=== PATIENT | male | born 1955 | race Caucasian/White ===

== ENCOUNTER → 2017-03-01 | Outpatient (CLI) | payer MEDICARE, BC ==
--- NOTE | 2017-03-01 08:53 | CT ---
EXAMINATION TYPE: CT cervical spine wo con DATE OF EXAM: 03/01/2017 COMPARISON: NONE HISTORY: Cervicalgia CT DLP: 555.60 mGycm Automated exposure control for dose reduction was used. TECHNIQUE: CT scan of the cervical spine is obtained without contrast, axial images are obtained, sa gittal and coronal reformatted images are also reviewed. FINDINGS: There is narrowing of disc height C3-4 through C6-7. Mild spondylosis is present. No AP spi nal canal stenosis is present. Uncovertebral joint hypertrophy is contributing to foraminal narrowing C6-7, C6-5-6 on the right, mildly at C4-5 greater on the right C3-4. IMPRESSION: 1. Degenerative disc changes and uncovertebral joint hypertrophy contributing to foraminal narrowing discussed above
== END | disposition home or self-care (01) ==
LOC: RADCTMAIN 08:22
PROVIDERS: ATTEND Psychiatry & Neurology Neurology
DX: M99.71 Connective tissue and disc stenosis of intervertebral foramina of cervical region (principal); M47.812 Spondylosis without myelopathy or radiculopathy, cervical region
CPT/HCPCS: 72125

== ENCOUNTER 2017-03-15 09:10 | Day surgery (SDC) | payer MEDICARE, BC ==
[2017-03-12 11:54] VITALS: BMI 30.1
[~2017-03-15 09:10] MED LIST: DEXAMETHASONE SOD PHOSPHATE 10 MG/ML 1 ML VIAL IV ONE; HYDROmorphone 1 MG/ML 1 ML SYRINGE IVP PRN; LACTATED RINGERS 1,000 ML IV SCH; ONDANSETRON 4 MG/2 ML VIAL IVP ONE
[2017-03-15 09:40] VITALS: RESP 16; TEMP 98
[2017-03-15] MEDS ORDERED: PROPOFOL 10 MG/ML 20 ML VIAL IV ONE (10:50)
--- NOTE | 2017-03-15 11:20 | P.PCN ---
Date of Procedure: 03/15/17 Preoperative Diagnosis: Postoperative Diagnosis: Procedure(s) Performed: Procedure: Total colonoscopy. Preoperative diagnosis: Screening for neoplasia. Postoperative diagnosis: Exam within normal limits. Preparation: HalfLytely prep. Sedation: Was provided by anesthesia. Brief clinical history: The patient is a 62-year-old male who is referred for this evaluation for screening for neoplasia. He had a prior exam more than 10 years ago. At this time, he has no abdominal complaints, bleeding or anemia. Procedure: With the patient on his left lateral decubitus position and after informed consent and adequate sedation, the perianal area was inspected and it did not show any fissures or fistulas. There were no masses felt on digital rectal examination. The Olympus CFQ 160L video colonoscope was then inserted in the rectum in the usual fashion and advanced to the cecum. The mucosa appeared healthy. No polyps or tumors were seen or any obvious diverticular disease or other pathology. I retroflexed the endoscope in the rectum before the endoscope was withdrawn. The patient tolerated the procedure well. Plan: The patient was reassured. He will follow up with you as planned and I recommended a repeat exam in 10 years. Implants: Indications for Procedure: Operative Findings: Description of Procedure:
[2017-03-15 11:35] VITALS: BP 139/87; PULSE 86
== END 2017-03-15 11:58 | disposition home or self-care (01) ==
LOC: ORWHC2ENDO 09:10
DX: Z12.11 Encounter for screening for malignant neoplasm of colon (principal); E78.5 Hyperlipidemia, unspecified; I10 Essential (primary) hypertension; G47.33 Obstructive sleep apnea (adult) (pediatric); Z99.89 Dependence on other enabling machines and devices; Z79.1 Long term (current) use of non-steroidal anti-inflammatories (NSAID); Z79.891 Long term (current) use of opiate analgesic; Z79.899 Other long term (current) drug therapy
CPT/HCPCS: J2704; G0121

== ENCOUNTER → 2017-04-17 | Outpatient (CLI) | payer MEDICARE, BC ==
--- NOTE | 2017-04-18 08:17 | PN ---
Yimi is 62, he came to see me in followup. This is his annual checkup regarding obstructive sleep apnea. He has obstructive sleep apnea with an AHI of 28. Chronically on CPAP with a pressure of 10 cm of water. Treatment has remained successful over the past 1 year. He is still benefiting from the treatment. He is wearing it every night. He wakes up refreshed and alert during the day and sleep quality is good. He is averaging around 7.8 hours of CPAP use every night. No significant leaks around the mask and AHI ( ) down to 1.2. He is using an Air Fit P10 nasal pillow, small size. Weight is up by only 8 to 9 pounds. BP is 113/66, pulse 100, respirations 16, temperature 98.1, saturation 96% on room air. Height is 5,10, weight is 211. GENERAL APPEARANCE: Calm, comfortable. HEENT: Short neck, crowding of the posterior pharynx, no goiter, no neck masses. LUNGS: Clear to auscultation. Heart sounds are regular rate and rhythm, normal S1, S2. ABDOMEN: Soft, nontender, no organomegaly. EXTREMITIES: No edema, cyanosis or clubbing. IMPRESSION: 1. Obstructive sleep apnea, with an apnea-hypopnea index of 28, continues to have successful therapy with CPAP at a pressure of 10 cm of water. Treatment has been successful and the patient is very compliant. PLAN: 1. Encourage weight loss. 2. New CPAP supplies. 3. No need for adjustment on the CPAP machine. 4. Will continue to follow. See me back in a year or two in followup. BELINDA
== END ==
LOC: SLEEP 13:50
PROVIDERS: ATTEND Internal Medicine Critical Care Medicine
DX: G47.33 Obstructive sleep apnea (adult) (pediatric) (principal)

== ENCOUNTER → 2017-12-20 | Outpatient (CLI) | payer MEDICARE ==
--- NOTE | 2017-12-20 12:28 | CT ---
EXAMINATION TYPE: CT lumbar spine wo con DATE OF EXAM: 12/20/2017 COMPARISON: 03/22/2016 MRI HISTORY: 62-year-old male complains of low back pain with radiation to the left leg. TECHNIQUE: Contiguous axial scanning of the lumbar spine without IV contrast. Coronal and sagittal re constructions performed. CT DLP: 996.9 mGycm Automated exposure control for dose reduction was used. FINDINGS: Vertebral body heights are preserved and alignment is maintained. Spinal stimulator leads entering at the L3-L4 and T12-L1 levels. There is right-sided L5-S1 posterior fusion as well as mature bony interbody fusion. Mild disc bulging at L3-L4 and L4-L5. Facet degenerative change at both L4-L5 and L5-S1. On the left, there is mild neuroforaminal narrowing at L4-L5 and minimal at L3-L4. On the right, ther e is mild neuroforaminal narrowing at L3-L4, L4-L5, and possibly moderate at L5-S1. No tony canal compromise evident by CT. Diverticular change along the distal sigmoid. Gastric fundal diverticulum incidentally noted. Degenerative changes at the left SI joint. IMPRESSION: 1. RIGHT-SIDED POSTERIOR FUSION at L5-S1 as well as mature interbody bony fusion. Corresponding taina ectomy. 2. Mild bulging disks mid to lower lumbar spine without tony canal compromise by CT. Corresponding m ild facet arthropathy. 3. On the right, there is mild neuroforaminal narrowing from L3 through S1 levels. 4. On the left, there is mild neural foraminal stenosis at L4-L5. 5. Left SI joint OA.
== END | disposition home or self-care (01) ==
LOC: RADCTMAIN 11:04
PROVIDERS: ATTEND Psychiatry & Neurology Neurology
DX: M99.73 Connective tissue and disc stenosis of intervertebral foramina of lumbar region (principal); M51.26 Other intervertebral disc displacement, lumbar region; M47.898 Other spondylosis, sacral and sacrococcygeal region; Z98.1 Arthrodesis status
CPT/HCPCS: 72131

== ENCOUNTER → 2018-05-23 | Outpatient (CLI) | payer MEDICARE ==
--- NOTE | 2018-05-23 11:14 | SFUN ---
SLEEP CENTER FOLLOW UP NOTE DATE OF SERVICE: A 63-year-old gentleman who has been followed in the Sleep Center for treatment of obstructive sleep apnea-hypopnea syndrome. Patient is on treatment with CPAP for 3 years. He continued to use his equipment every night for the whole night without any significant problems receiving his supplies in time. [place] Sleepiness Scale today is 5. I checked his CPAP unit. CPAP pressure is 10 cm of water. Leak is only 7 L/minute which is normal range. Apnea-hypopnea index is 5, which is acceptable. The usage is 121/30 nights for more than 4 hours. Average usage is 9.3 hours, which is normal compliance. MEDICATIONS: Morphine pump, Zocor, lisinopril, Lyrica, Motrin, Norvasc, and oxycodone. PHYSICAL EXAM: A 63-year-old gentleman without distress. BP 111/66, HR 68, RR 16, height 5, 9, weight 206, temperature 98.3, oxygen saturation at room air 96%. OROPHARYNX: Moderately low position of soft palate. Neck Supple, no JVD. Thyroid is not palpable. LUNGS Clear to percussion and to auscultation. Good air exchange. No wheezing or rhonchi. HEART S1, S2 regular. No murmurs, gallops, or rubs. ABDOMEN Soft and nontender. Bowel sounds are present. No organomegaly appreciated. EXTREMITIES No clubbing or cyanosis. FERRY TERMINAL AGENT Awake, alert, and oriented X3. Cranial nerves 2 to 7 intact. There is no fasciculation or atrophy. noted. No focal deficits observed. IMPRESSION: 1. Obstructive sleep apnea-hypopnea syndrome on control with CPAP. Patient demonstrated good compliance with treatment, benefitting from treatment. 2. Hypertension. 3. Hyperlipidemia. 4. Blood problems. PLAN: 1. Patient will continue to use CPAP equipment every night for the whole night. 2. Watching weight. 3. We discussed using of humidity to be sure that there is not any water in the humidifier after usage in the morning, let it dry. 4. No driving if feeling any sleepiness. 5. Will maintain prescription for all necessary CPAP supplies, including nasal pillow mask, tube, filters. Sincerely, Braulio Damian MD, PhD, FAASM Diplomat of [place] [employer] [place] [employer] Disease Intervention Specialist of [facility] [place] MMODL / ILIR: [id number] /
== END | disposition home or self-care (01) ==
LOC: SLEEP 09:55
PROVIDERS: ATTEND Internal Medicine
DX: G47.33 Obstructive sleep apnea (adult) (pediatric) (principal); D75.9 Disease of blood and blood-forming organs, unspecified; E78.5 Hyperlipidemia, unspecified; I10 Essential (primary) hypertension; Z99.89 Dependence on other enabling machines and devices; Z79.891 Long term (current) use of opiate analgesic; Z79.1 Long term (current) use of non-steroidal anti-inflammatories (NSAID); Z79.899 Other long term (current) drug therapy

== ENCOUNTER → 2018-07-19 | Outpatient (CLI) | payer MEDICARE ==
--- NOTE | 2018-07-19 10:23 | ECHOS ---
STRESS ECHOCARDIOGRAM INDICATIONS: Chest pain. MEDICATIONS: Lisinopril, amlodipine, atorvastatin, oxycodone, morphine pump. BASELINE HEART RATE: 82 BASELINE BLOOD PRESSURE: 104/42 MAXIMUM HEART RATE: 152 MAXIMUM BLOOD PRESSURE: 168/58 85% MPHR: 135 100% MPHR: 159 METS: 8.5 MAXIMUM STAGE REACHED: 3 TOTAL EXERCISE TIME: 7:00 CLINICAL INFORMATION: Baseline EKG shows sinus rhythm, normal axis, normal intervals. Patient exercised on Abdirahman protocol for a total of 7 minutes achieving 8 METS, 95% of predicted maximal heart rate without chest pain or diagnostic ST-segment depression. Baseline echo shows normal left ventricular size, wall motion, systolic function. Postexercise, there is normal hyperdynamic response of all segments of myocardium noted. MMODL / IJN: [id number] /
== END | disposition home or self-care (01) ==
LOC: RADNMMAIN 08:40
PROVIDERS: ATTEND Family Medicine
DX: R07.9 Chest pain, unspecified (principal)
CPT/HCPCS: 93351

== ENCOUNTER → 2019-06-05 | Outpatient (CLI) | payer MEDICARE ==
--- NOTE | 2019-06-05 18:00 | PN ---
PROGRESS NOTE DATE OF SERVICE: 06/05/2019 64-year-old gentleman who has been followed in the Sleep Center for treatment of obstructive sleep apnea-hypopnea syndrome. The patient continued to use his CPAP equipment every night for the whole night without significant problems related to mask fitting, pressure or humidification. [place] Sleepiness Scale today is 4. I checked patient's CPAP unit. CPAP pressure is 10 cm of water. Usage is 27/30 nights for last month and 21/30 nights for more than 4 hours with average usage of 6.1 hours per night. Leak is 11 L/minute, which is normal range. Apnea-hypopnea index only 1.0, which is absolutely perfect. MEDICATIONS: Zocor, lisinopril, Lyrica, Motrin, Norvasc, oxycodone, morphine pump. PHYSICAL EXAM: Patient in no distress. BP 120/79, HR 84, RR 16, height 5 feet 9 inches, weight 213 pounds. Body mass index 31.4, temperature 98.6, oxygen saturation at room air 97%. Oropharynx, low position of soft palate, Mallampati 3. Neck Supple, no JVD. Thyroid is not palpable. LUNGS Clear to percussion and to auscultation. Good air exchange. No wheezing or rhonchi. HEART: S1, S2 regular. No murmurs, gallops, or rubs. ABDOMEN: Slightly obese. Soft and nontender. Bowel sounds are present. No organomegaly appreciated. EXTREMITIES No clubbing or cyanosis. MANAGER RAIL Awake, alert, and oriented X3. Cranial nerves 2 to 7 intact. There is no fasciculation or atrophy. noted. No focal deficits observed. IMPRESSION: 1. Obstructive sleep apnea-hypopnea syndrome. Patient demonstrated good compliance with treatment benefitting from treatment. 2. Hypertension. 3. Hyperlipidemia. 4. Back problems. PLAN: 1. Patient will continue to use CPAP equipment every night for the whole night. 2. Sleep hygiene with regular time in bed for at least 7-1/2 to 8 hours. 3. No driving if feeling sleepiness. 4. I will maintain all necessary prescriptions for CPAP supplies including nasal pillow, mask. He is using AirFit P10 small-medium size, heated tube filters. 5. Followup visit in 1 year or earlier if patient has any problems. Thank you very much for allowing me to participate in management of your patient. Sincerely, Braulio Damian MD, PhD, FAASM Diplomat of [employer] Entomology Teacher of [facility] [place] MMGEETHA / ILIR: [id number] /
== END ==
LOC: SLEEP 15:19
PROVIDERS: ATTEND Internal Medicine
DX: G47.33 Obstructive sleep apnea (adult) (pediatric) (principal); I10 Essential (primary) hypertension; E78.5 Hyperlipidemia, unspecified; R29.898 Other symptoms and signs involving the musculoskeletal system; Z99.89 Dependence on other enabling machines and devices; Z79.899 Other long term (current) drug therapy; Z79.1 Long term (current) use of non-steroidal anti-inflammatories (NSAID); Z79.891 Long term (current) use of opiate analgesic

== ENCOUNTER → 2019-08-25 | Outpatient (CLI) | payer MEDICARE ==
--- NOTE | 2019-08-25 10:42 | CT ---
EXAMINATION TYPE: CT lumbar spine wo/w con DATE OF EXAM: 08/25/2019 COMPARISON: 12/20/2017 HISTORY: Worsening low back pain with radiation to the extremities. CT DLP: 2406 mGycm CONTRAST: Unenhanced CT of the lumbar spine is performed without and with IV Contrast, patient injected with 10 0 mL of Isovue 300. L1-L2: Normal disc space height. No disc herniation protrusion or central stenosis. No facet joint arthropathy. No evidence for foraminal encroachment. L2-L3: Normal disc space height. No disc herniation protrusion or central stenosis. No facet joint arthropathy. No evidence for foraminal encroachment. L3-L4: Mild degenerative disc space narrowing. Mild posterior disc bulge with mild effacement ventral thecal sac. No herniation, central stenosis or lateral recess stenosis. No foraminal encroachment. L4-L5: Lumbar laminectomy change. Mild posterior disc bulge. No evidence for a disc herniation or ryne tral stenosis. No pathologic enhancement identified. L5-S1: Postsurgical changes of lumbar laminectomy with pedicular screws in place. Extensive streak ar tifact limits evaluation. Intervertebral body spacer is appropriately position. No definite evidence for recurrent or residual disease although as noted streak artifact limits evaluation. No paraspinal masses are identified. Lumbar segments are free if fracture. IMPRESSION: 1. Postoperative changes with appropriate postoperative alignment. 2. Disc bulging at L3-4 and L4-5 with mild effacement ventral thecal sac. No evidence for disc hernia tion or central stenosis at this time.
== END ==
LOC: RADCTMAIN 08:57
PROVIDERS: ATTEND Psychiatry & Neurology Neurology
DX: M51.26 Other intervertebral disc displacement, lumbar region (principal); Z98.890 Other specified postprocedural states
CPT/HCPCS: 72133; Q9967

== ENCOUNTER → 2020-08-18 | Outpatient (CLI) | payer MEDICARE | END | disposition home or self-care (01) | LOC: LABWHC1 10:44 | PROVIDERS: ATTEND Psychiatry & Neurology Neurology | DX: Z01.818 Encounter for other preprocedural examination (principal) | CPT/HCPCS: 36415; 93005 ==

== ENCOUNTER → 2020-09-08 | Outpatient (CLI) | payer MEDICARE ==
--- NOTE | 2020-09-09 00:25 | SFUN ---
SLEEP CENTER FOLLOW UP NOTE DATE OF SERVICE: 09/08/2020. DATE OF SERVICE: 65-year-old gentleman who has been followed in Sleep Center for treatment of obstructive sleep apnea-hypopnea syndrome. The patient successfully continues to use his CPAP equipment every night for the whole night without snoring. No problems related to mask fitting, pressure or humidification. [place] Sleepiness Scale today he is 6, which is normal. I checked the CPAP unit. CPAP pressure is 10 cm of water. Usage is 28/30 nights more than 4 hours with average usage is 7 hours per night. Leak is 8 L/minutes which is normal. Apnea-hypopnea index is 2.3, which is perfect. MEDICATIONS: Morphine pump, amlodipine 5 mg once a day, hydrochlorothiazide, lisinopril once a day, atorvastatin 40 mg once a day at bedtime. Cyclobenzaprine 10 mg on p.r.n. basis, ibuprofen 800 mg twice a day, oxycodone HCl 5 mg twice a day if needed. 100 mg once a day, multivitamins. PHYSICAL EXAM: Patient in no distress, BP 115/65, HR 68, RR 15, height 5 feet 9-1/2 inches, weight 228, BMI 33.1, temperature 98.3, oxygen saturation at room air 96%. Oropharynx low position of soft palate. Mallampati 3. HEENT: PERRLA, EOMI, evaluation of oropharynx showed tongue protrudes midline. NECK: Supple, no JVD. Thyroid is not palpable. LUNGS: Clear to percussion and to auscultation. Good air exchange. No wheezing or rhonchi. HEART: S1, S2 regular. No murmurs, gallops, or rubs. ABDOMEN: Soft and nontender. Bowel sounds are present. No organomegaly appreciated. EXTREMITIES: No clubbing or cyanosis. CAN RECONDITIONER: Awake, alert, and oriented X3. Cranial nerves 2 to 7 intact. There is no fasciculation or atrophy. noted. No focal deficits observed. IMPRESSION: 1. Obstructive sleep apnea-hypopnea syndrome. The patient demonstrated great compliance with treatment benefitting from treatment. 2. Hypertension. 3. Hyperlipidemia. 4. Back problem. PLAN: 1. Patient will continue to use PAP equipment every night for the whole night. 2. Sleep hygiene with regular time in bed for at least 7-1/2 to 8 hours. 3. Precautions related to driving. No driving if feeling sleepiness. 4. I will maintain all necessary prescription for PAP supplies including mask, tube, filters. 5. Watching weight. 6. No driving if feeling sleepiness. 7. Follow-up visit in 6 months or earlier if patient has any problems. Thank you very much for allowing me to participate in management of your patient. Sincerely, Braulio Damian MD, PhD, FAASM Diplomat of [place] [employer] [employer] Pricing Consultant of [facility] [place] MMODL / JARETTN: [id number] /
== END | disposition home or self-care (01) ==
LOC: SLEEP 13:30
PROVIDERS: ATTEND Internal Medicine
DX: G47.33 Obstructive sleep apnea (adult) (pediatric) (principal); I10 Essential (primary) hypertension; E78.5 Hyperlipidemia, unspecified; R93.89 Abnormal findings on diagnostic imaging of other specified body structures; Z99.89 Dependence on other enabling machines and devices; Z79.891 Long term (current) use of opiate analgesic; Z79.1 Long term (current) use of non-steroidal anti-inflammatories (NSAID); Z79.899 Other long term (current) drug therapy

== ENCOUNTER → 2021-01-19 | Outpatient (CLI) | payer MEDICARE ==
--- NOTE | 2021-01-19 11:24 | CT ---
EXAMINATION TYPE: CT lumbar spine w con DATE OF EXAM: 01/19/2021 COMPARISON: 08/25/2019 HISTORY: low back pain radiating bilaterally down legs to the feet, history of lumbar fusion CT DLP: 1367.2 mGycm CONTRAST: CT scan of the lumbar is performed with IV Contrast, patient injected with 100 mL of Isovue 300. TECHNIQUE: CT of the lumbar spine is performed on a spiral scan at 3 mm thick sections. Reconstructed images are performed in the coronal and sagittal planes. FINDINGS: Metallic artifact from a pedicle screws present on the right at L5-S1. Metallic disc spacer s present at L5-S1. Stimulator leads are present. T12-L1: No focal disc herniation or significant disc bulge is evident. No spinal canal stenosis or neural foraminal stenosis is present. L1-L2: Minimal disc bulge is present with anterior thecal sac contact. No AP spinal canal stenosis pr esent. Neural foramen are patent. L2-L3: Mild disc bulge is present with anterior thecal sac contact. No spinal canal stenosis or neura l foraminal stenosis is present. L3-L4: Mild disc bulges anterior thecal sac flattening. Facet hypertrophy with minimal ligamentum fla vum laxity is present. No spinal canal stenosis is present. Neural foramen appear patent. L4-L5: Broad-based disc bulge with mild anterior thecal sac compression. No AP spinal canal stenosis is present. Neural foramen are patent. Facet hypertrophy is present. Vacuum facet phenomenon is on th e right. L5-S1: No focal disc herniation or significant disc bulge is evident. No spinal canal stenosis or n eural foraminal stenosis is present Vertebral alignment appears normal. IMPRESSION: Mild disc bulging at L1-2 through L4-5. This is greatest at L4-5 with mild anterior thecal sac compre ssion. No stenosis is present. 2. Facet degenerative change L4-5 on the right.
== END | disposition home or self-care (01) ==
LOC: RADCTMAIN 09:39
PROVIDERS: ATTEND Psychiatry & Neurology Neurology
DX: M51.16 Intervertebral disc disorders with radiculopathy, lumbar region (principal); M47.26 Other spondylosis with radiculopathy, lumbar region
CPT/HCPCS: 72132; Q9967

== ENCOUNTER → 2021-03-17 | Outpatient (CLI) | payer MEDICARE ==
--- NOTE | 2021-03-17 15:32 | SFUN ---
SLEEP CENTER FOLLOW UP NOTE DATE OF SERVICE: 03/17/2021 66 year old gentleman has been followed in the Sleep Center for treatment of obstructive sleep apnea-hypopnea syndrome. The patient successfully continued to use his equipment every night. No snoring. [place] Sleepiness Scale today is 8 which is in normal range. The patient continues to be on pain pump with morphine. I checked his CPAP unit. The pressure is 10 cm of water. Usage is 30/30 nights and 21 out of 30 nights for more than 4 hours. Average 5.6 hours per night. Leak is 14 L/minute which is borderline, but apnea-hypopnea index is totally perfect 2.2. MEDICATIONS: Amlodipine 5 mg once a day. Hydrochlorothiazide, lisinopril 20/25 mg once a day, trazodone 50 mg 1-2 tablets at bedtime, atorvastatin 80 mg once a day, omeprazole 40 mg once a day, morphine pump, Lyrica 100 mg once a day, multivitamins, pregabalin, oxycodone, cyclobenzaprine 10 mg once a day. PHYSICAL EXAMINATION: GENERAL: Patient in no distress. BP 134/85, HR 74, RR 15, height 5 feet 9 and one half inches, weight 220. Body mass index 32. Temperature 98.4, oxygen saturation 97%. Oropharynx: Low position of soft palate, Mallampati 3. NECK: Supple, no JVD. Thyroid is not palpable. LUNGS: Clear to percussion and to auscultation. Good air exchange. No wheezing or rhonchi. HEART: S1, S2 regular. No murmurs, gallops, or rubs. ABDOMEN: Soft and nontender. Bowel sounds are present. No organomegaly appreciated. EXTREMITIES: No clubbing or cyanosis. MANAGER BALANCE: Awake, alert, and oriented X3. Cranial nerves 2 to 7 intact. There is no fasciculation or atrophy. noted. No focal deficits observed. IMPRESSION: 1. Obstructive sleep apnea-hypopnea syndrome. Patient demonstrated good compliance with treatment. Normal aspiration on CPAP. 2. Hypertension. 3. Hyperlipidemia. 4. Back problems. PLAN: 1. Patient will continue to use PAP equipment every night for the whole night. 2. Sleep hygiene with regular time in bed for at least 7-1/2 to 8 hours. 3. Precautions related to driving. No driving if feeling sleepiness. 4. I will maintain all necessary prescription for PAP supplies including mask, tube, filters. 5. Watching weight. 6. Follow-up visit in 6 months or earlier if patient has any problems. Thank you very much for allowing me to participate in management of your patient. Sincerely, Braulio Damian MD, PhD, FAASM Diplomat of [place] [employer] Sleep Medicine Board of [place] [employer] Retail Planning Manager of [facility] [place] MMODL / ILIR: [id number] /
== END ==
LOC: SLEEP 11:18
PROVIDERS: ATTEND Internal Medicine
DX: G47.33 Obstructive sleep apnea (adult) (pediatric) (principal); I10 Essential (primary) hypertension; E78.5 Hyperlipidemia, unspecified; M48.9 Spondylopathy, unspecified; F17.200 Nicotine dependence, unspecified, uncomplicated; Z79.899 Other long term (current) drug therapy

== ENCOUNTER → 2022-08-18 | Outpatient (CLI) | payer MEDICARE ==
[2022-08-18 11:36] LABS: African American GFR (CKD) >90 (>60 ml/min/1.73 sqM); Blood Urea Nitrogen 15 mg/dL (9-20); Non-African American GFR(CKD) >90 (>60 ml/min/1.73 sqM)
--- NOTE | 2022-08-18 14:29 | CT ---
EXAMINATION TYPE: CT lumbar spine wo/w con CT DLP: 2045 mGycm, Automated exposure control for dose reduction was used. DATE OF EXAM: 08/18/2022 1:38 PM COMPARISON: CT lumbar spine 01/19/2021. CLINICAL INDICATION:Male, 67 years old with history of M54.50 low back pain; PHH, Low back pain TECHNIQUE: Multiple axial images were obtained from the midportion of T11 through the sacroiliac zaina nts before and after the uneventful administration of 70 cc of Isovue-300 intravenously. Soft tissue and bone windows in coronal and sagittal planes were obtained and reviewed. FINDINGS: Metallic artifact from pedicular screws present on the right at L5-S1. Metallic disc spacers present at L5-S1. Stimulator leads are present. No abnormal contrast enhancement. Alignment: There are 5 lumbar type vertebral bodies within normal alignment. Bone: No evidence of fracture is identified. Discs: T12-L1: No focal disc herniation or significant disc bulge is evident. No spinal canal stenosis or ne ural foraminal stenosis identified. L1-L2: Minimal disc bulge is present with out significant central canal stenosis. The neural foramina are patent bilaterally. L2-L3: Minimal broad-based disc bulge without significant spinal canal stenosis. The neural foramina are patent bilaterally. L3-L4: Broad-based disc bulge with minimal effacement of the intrathecal sac. No significant spinal c anal stenosis. The neural foramina are patent bilaterally. L4-L5: Broad-based disc bulge with mild effacement of the anterior thecal sac are demonstrated. Face t hypertrophy with minimal ligamentum flavum buckling is present. No significant central canal stenos is. The neural foramina appear patent bilaterally. L5-S1: No focal disc herniation or significant disc bulge is evident. Evaluation is limited due to st reak artifact from hardware. No gross evidence of significant spinal canal or neural foraminal stenos is. Other: Partial visualization of left renal cyst measuring at least 1.7 cm. Mild atrophy and calcifica tion of the aorta. IMPRESSION: 1. No evidence of fracture of the lumbar spine. 2. Stable postoperative changes. 3. Similar multilevel degenerative disc disease most pronounced at L4-L5 from prior examination.
== END | disposition home or self-care (01) ==
LOC: RADCTMAIN 11:03
PROVIDERS: ATTEND Psychiatry & Neurology Neurology
DX: M51.36 Other intervertebral disc degeneration, lumbar region (principal); Z98.1 Arthrodesis status
CPT/HCPCS: 82565; 84520; 72133; 36415; Q9967

== ENCOUNTER → 2022-10-11 | Outpatient (CLI) | payer MEDICARE | END | disposition home or self-care (01) | LOC: LABWHC1 11:47 | PROVIDERS: ATTEND Nurse Practitioner Family | DX: Z01.818 Encounter for other preprocedural examination (principal) | CPT/HCPCS: 93005 ==

== ENCOUNTER → 2022-12-25 | Outpatient (CLI) | payer MEDICARE ==
--- NOTE | 2022-12-25 14:53 | US ---
EXAMINATION TYPE: US thyroid st tissue head/neck DATE OF EXAM: 12/25/2022 COMPARISON: NONE CLINICAL INDICATION: Male, 67 years old with history of E04.1 NONTOXIC SINGLE THYROID NODULE; thyroid nodules GLAND SIZE: Right Lobe: 6.0 x 2.0 x 2.6 cm Overall Parenchyma: homogenous Left Lobe: 5.6 x 2.1 x 2.0 cm Overall Parenchyma: homogeneous Isthmus Thickness: 0.6 cm NODULES RIGHT: # of nodules measured on right: 1 1. 0.7 X 0.6 x 0.8 cm, lower , mixed cystic and solid, hypoechoic nodule, which is wider than tall, with smooth margins, with echogenic foci. Prior size: 1.3 x 0.9 x 1.1 cm LEFT: # of nodules measured on left: 0 ISTHMUS: # of nodules measured in the isthmus: 0 Bilateral neck scanned, no evidence of lymphadenopathy. IMPRESSION: Mixed nodule is redemonstrated however is smaller in size.
== END | disposition home or self-care (01) ==
LOC: RADUSWWP 12:16
DX: E04.1 Nontoxic single thyroid nodule (principal)
CPT/HCPCS: 76536

== ENCOUNTER 2023-06-20 09:01 | Day surgery (SDC) | payer MEDICARE ==
[2023-06-13 13:57] VITALS: BMI 31.5
[~2023-06-20 09:01] MED LIST changes: -DEXAMETHASONE SOD PHOSPHATE 10 MG/ML 1 ML VIAL IV ONE; -HYDROmorphone 1 MG/ML 1 ML SYRINGE IVP PRN; -LACTATED RINGERS 1,000 ML IV SCH; +LIDOCAINE 1% (10MG/ML) FOR IV START INTRADERMA PRN; -ONDANSETRON 4 MG/2 ML VIAL IVP ONE
[2023-06-20] MEDS: LACTATED RINGERS 1,000 ML IV SCH ×2 (09:27→10:12)
[2023-06-20 09:34] VITALS: TEMP 97
[2023-06-20] MEDS ORDERED: LIDOCAINE 2% (PF) 20 MG/ML 5 ML VIAL ONE (10:13)
[2023-06-20] MEDS ORDERED: PROPOFOL 10 MG/ML 20 ML VIAL IV ONE (10:13)
--- NOTE | 2023-06-20 10:35 | P.GSHP ---
History of Present Illness H&P Date: 06/20/23 CHIEF COMPLAINT: GERD HISTORY OF PRESENT ILLNESS: The patient is a 68-year-old male who presents reports gastric ulcers and gastroesophageal reflux disease. Upper endoscopy was offered for further evaluation and management. PAST MEDICAL HISTORY: Please see list. PAST SURGICAL HISTORY: Please see list. MEDICATIONS: Please see list. ALLERGIES: Please see list. SOCIAL HISTORY: No illicit drug use FAMILY HISTORY: No reports of Crohn disease or ulcerative colitis. REVIEW OF ORGAN SYSTEMS: CONSTITUTIONAL: No reports of fevers or chills. GI: Denies any blood in stools or constipation. PHYSICAL EXAM: VITAL SIGNS: Stable GENERAL: Well-developed and pleasant in no acute distress. HEENT: No scleral icterus. Extraocular movements grossly intact. Moist buccal mucosa. NECK: Supple without lymphadenopathy. CHEST: Unlabored respirations. Equal bilateral excursions. CARDIOVASCULAR: Regular rate and rhythm. Distal 2+ pulses. ABDOMEN: Soft, nondistended. MUSCULOSKELETAL: No clubbing, cyanosis, or edema. ASSESSMENT: 1. Gastroesophageal reflux disease 2. Gastric ulcers PLAN: 1. Recommend proceeding with an upper endoscopy Past Medical History Past Medical History: Hyperlipidemia, Hypertension, Sleep Apnea/CPAP/BIPAP Additional Past Medical History / Comment(s): CPAP MACHINE, TINNITUS, colonoscopy History of Any Multi-Drug Resistant Organisms: None Reported Past Surgical History: Back Surgery, Orthopedic Surgery, Tonsillectomy Additional Past Surgical History / Comment(s): RIGHT AND LEFT SHOULDER SURGERY, STIMULATOR IMPLANTED IN BACK, L5 S1 locked SI joints , morphine pump, gets filled every 62 days 07/23/23, has stomach ulcer has been off motrin x 2 weeks. Has abdominal hernia no surgery yet Past Anesthesia/Blood Transfusion Reactions: No Reported Reaction Additional Past Anesthesia/Blood Transfusion Reaction / Comment(s): no blood transfusion Smoking Status: Current every day smoker - Past Family History Mother Family Medical History: No Reported History Medications and Allergies Home Medications Medication Instructions Recorded Confirmed Type Amitriptyline HCl 50 mg PO HS 03/12/17 06/20/23 History Lisinopril-Hctz 20-25 mg 1 tab PO DAILY 03/12/17 06/20/23 History [Zestoretic 20-25] Pregabalin [Lyrica] 200 mg PO BID 03/12/17 06/20/23 History Simvastatin [Zocor] 40 mg PO HS 03/12/17 06/20/23 History amLODIPine [Norvasc] 5 mg PO HS 03/12/17 06/20/23 History oxyCODONE HCL [OxyCONTIN] 20 mg PO Q12HR 03/12/17 06/20/23 History Multivitamin [Multivitamins Adult 1 each PO DAILY 06/13/23 06/20/23 History Gummies] Naloxegol Oxalate [Movantik] 12.5 mg PO DAILY 06/13/23 06/20/23 History Omeprazole 40 mg PO DAILY 06/13/23 06/20/23 History Sucralfate [Carafate] 1 gm PO TID 06/13/23 06/20/23 History traZODone HCL [Desyrel] 2 tab PO HS 06/13/23 06/20/23 History Allergies Allergy/AdvReac Type Severity Reaction Status Date / Time No Known Allergies Allergy Verified 06/20/23 09:20 Surgical - Exam Vital Signs Temp Pulse Resp BP Pulse Ox 97 F L 66 18 154/77 94 L 06/20/23 09:25 06/20/23 09:25 06/20/23 09:25 06/20/23 09:25 06/20/23 09:25
--- NOTE | 2023-06-20 10:39 | P.PCN ---
Date of Procedure: 06/20/23 Description of Procedure: PREOPERATIVE DIAGNOSIS: Gastroesophageal reflux disease. Gastric ulcers POSTOPERATIVE DIAGNOSIS: Gastric diverticulum, cardia Gastritis Gastroesophageal reflux disease. Esophageal dysmotility OPERATION: Esophagogastroduodenoscopy with biopsies esophagus, along antrum and duodenum SURGEON: Kasey Alvarez MD ANESTHESIA: MAC. INDICATIONS: The patient is a 68-year-old male who presents with gastric ulcers and reflux disease. Benefits and risks of the procedure were described. Informed consent was obtained. DESCRIPTION: The patient was brought into the endoscopy suite and laid in the left lateral decubitus position. An Olympus gastroscope was passed along the posterior oropharynx down to the distal esophagus where the squamocolumnar junction was encountered at 38 cm from the incisors. The stomach was entered and no bile reflux was found. Additional findings are listed below. Biopsies with cold forceps were obtained of the antrum. The first through third portion of the duodenum was examined. Retroflexion of the scope confirmed Hill grade 2 lower esophageal valve. The squamocolumnar junction demonstrated LA grade A erosive esophagitis. The stomach was desufflated. The patient tolerated the procedure well. FINDINGS: Squamocolumnar junction 38 cm from the incisors. Diaphragmatic hiatus at 38 cm. Gastric diverticulum at gastric cardia Diaphragmatic hiatal hernia, paraesophageal Hill grade 2 lower esophageal valve. LA grade A erosive esophagitis. Biopsies obtained of the duodenum And esophagus Chronic gastritis with biopsies obtained. RECOMMENDATIONS: Upper endoscopy as needed. Plan - Discharge Summary Discharge Rx Participant: No New Discharge Prescriptions: Continue Amitriptyline HCl 50 mg PO HS Simvastatin [Zocor] 40 mg PO HS Lisinopril-Hctz 20-25 mg [Zestoretic 20-25] 1 tab PO DAILY oxyCODONE HCL [OxyCONTIN] 20 mg PO Q12HR Pregabalin [Lyrica] 200 mg PO BID amLODIPine [Norvasc] 5 mg PO HS Omeprazole 40 mg PO DAILY Naloxegol Oxalate [Movantik] 12.5 mg PO DAILY traZODone HCL [Desyrel] 2 tab PO HS Multivitamin [Multivitamins Adult Gummies] 1 each PO DAILY Sucralfate [Carafate] 1 gm PO TID Discharge Medication List Amitriptyline HCl 50 mg PO HS 03/12/17 [History] Lisinopril-Hctz 20-25 mg [Zestoretic 20-25] 1 tab PO DAILY 03/12/17 [History] Pregabalin [Lyrica] 200 mg PO BID 03/12/17 [History] Simvastatin [Zocor] 40 mg PO HS 03/12/17 [History] amLODIPine [Norvasc] 5 mg PO HS 03/12/17 [History] oxyCODONE HCL [OxyCONTIN] 20 mg PO Q12HR 03/12/17 [History] Multivitamin [Multivitamins Adult Gummies] 1 each PO DAILY 06/13/23 [History] Naloxegol Oxalate [Movantik] 12.5 mg PO DAILY 06/13/23 [History] Omeprazole 40 mg PO DAILY 06/13/23 [History] Sucralfate [Carafate] 1 gm PO TID 06/13/23 [History] traZODone HCL [Desyrel] 2 tab PO HS 06/13/23 [History] Follow up Appointment(s)/Referral(s): Kasey Alvarez MD [STAFF PHYSICIAN] - 07/10/23 11:00 am Patient Instructions/Handouts: Moderate Sedation (DC) Discharge Disposition: HOME SELF-CARE
[2023-06-20 11:00] VITALS: BP 146/80; PULSE 64; RESP 20
== END 2023-06-20 11:06 | disposition home or self-care (01) ==
LOC: ORWHC2ENDO 09:01
PROVIDERS: ATTEND Surgery Plastic and Reconstructive Surgery
DX: K29.50 Unspecified chronic gastritis without bleeding (principal); K31.4 Gastric diverticulum; K22.4 Dyskinesia of esophagus; K25.9 Gastric ulcer, unspecified as acute or chronic, without hemorrhage or perforation; K21.9 Gastro-esophageal reflux disease without esophagitis; E78.5 Hyperlipidemia, unspecified; G47.30 Sleep apnea, unspecified; I10 Essential (primary) hypertension; F17.200 Nicotine dependence, unspecified, uncomplicated; Z79.899 Other long term (current) drug therapy
CPT/HCPCS: 88305; 43239; J2704; J2001

== ENCOUNTER → 2023-07-30 | Outpatient (CLI) | payer MEDICARE ==
[2023-07-30 14:52] LABS: African American GFR (CKD) >90 (>60 ml/min/1.73 sqM); Blood Urea Nitrogen 13 mg/dL (9-20); Non-African American GFR(CKD) >90 (>60 ml/min/1.73 sqM)
--- NOTE | 2023-07-31 08:19 | CT ---
EXAMINATION TYPE: CT abdomen pelvis w con DATE OF EXAM: 07/30/2023 COMPARISON: None HISTORY: HX OF STOMACH ULCERS AND UMBILICAL HERNIAS. CT DLP: 1746.70 mGycm CONTRAST: CT scan of the abdomen and pelvis is performed with Oral Contrast and with IV Contrast, patient injec latrell with 100 mL of Isovue 300. FINDINGS: LUNG BASES-: No visible nodule. No infiltrate. LIVER/GB: No calcified gallstones. No space occupying hepatic lesion. Biliary tree is of normal ca liber. PANCREAS: No inflammation. No distinct mass. SPLEEN: No splenic enlargement. No lesion seen. ADRENALS: No nodule. No thickening. KIDNEYS/BLADDER: No hydronephrosis. No nephrolithiasis. 2 simple cyst left kidney measuring up to 1 .8 cm. Urinary bladder grossly unremarkable. BOWEL: Normal appendix. Normal bowel caliber. No inflammation. Gastric diverticulum noted. GENITAL ORGANS: No gross abnormality. LYMPH NODES: No greater than 1cm abdominal or pelvic lymph nodes are appreciated. AORTA: No significant abnormality. OSSEOUS STRUCTURES: Postoperative changes lumbar spine. OTHER: Small fat-containing umbilical hernia. IMPRESSION: 1. Gastric diverticulum noted. 2. Small fat-containing umbilical hernia. 3. Simple cyst left kidney.
== END | disposition home or self-care (01) ==
LOC: RADCTMAIN 13:21
PROVIDERS: ATTEND Surgery Plastic and Reconstructive Surgery
DX: K43.9 Ventral hernia without obstruction or gangrene (principal); K42.9 Umbilical hernia without obstruction or gangrene; K31.4 Gastric diverticulum; N28.1 Cyst of kidney, acquired; Z87.11 Personal history of peptic ulcer disease
CPT/HCPCS: 82565; 84520; 74177; 36415; Q9967

== ENCOUNTER → 2023-10-22 | Outpatient (CLI) | payer MEDICARE ==
[2023-10-22 14:16] LABS: African American GFR (CKD) >90 (>60 ml/min/1.73 sqM); Blood Urea Nitrogen 13 mg/dL (9-20); Non-African American GFR(CKD) 85 (>60 ml/min/1.73 sqM)
--- NOTE | 2023-10-25 20:09 | CT ---
EXAMINATION TYPE: CT pelvis wo/w con DATE OF EXAM: 10/22/2023 COMPARISON: 07/30/2023 HISTORY: LOW BACK PAIN. CT DLP: 1307.9 mGycm Automated exposure control for dose reduction was used. Contrast: None Technique: Axial images 5 mm thick sections FINDINGS: There is an electronic device overlying the anterior left posterior and lateral left abdomen. Postsur gical changes are within the L5-S1 levels. These are causing beam hardening artifact limiting evaluat ion. Urinary bladder appears unremarkable. Prostate appears normal with some calcification. Loops of bowel appear unremarkable. The appendix is not identified. No suspicious inflammatory change s are evident. Postsurgical changes at the left sacroiliac joint and within the right L5-S1 pedicles. Disc spacers p resent L5-S1. Femoral heads articulate with the acetabulum. Symphysis pubis appears normal. Right sacroiliac joint appears normal. IMPRESSION: 1. NO SUSPICIOUS ACUTE CHANGES
--- NOTE | 2023-10-26 07:32 | CT ---
EXAMINATION TYPE: CT lumbar spine wo/w con DATE OF EXAM: 10/22/2023 COMPARISON: 08/18/2022 HISTORY: LOW BACK PAIN. CT DLP: 3379 mGycm CONTRAST: None TECHNIQUE: CT of the lumbar spine is performed on a spiral scan at 3 mm thick sections. Reconstructed images are performed in the coronal and sagittal planes. FINDINGS: Stimulator leads enter the T12-L1 level. An additional stimulator lead appears to enter the L3-4 level. T12-L1: No focal disc herniation or significant disc bulge is evident. No spinal canal stenosis or neural foraminal stenosis is present. L1-L2: No focal disc herniation or significant disc bulge is evident. No spinal canal stenosis or n eural foraminal stenosis is present L2-L3: No focal disc herniation or significant disc bulge is evident. No spinal canal stenosis or n eural foraminal stenosis is present L3-L4: Broad-based disc bulge has mild anterior thecal sac flattening. No AP spinal canal stenosis is present. Moderate left and right foraminal narrowing is present. L4-L5: Broad-based disc bulges anterior thecal sac flattening. No AP spinal canal stenosis is present . Severe left foraminal stenosis is present. Some moderate to severe right foraminal stenosis is pres ent. L5-S1: Disc spacer is present causing beam hardening artifact. Pedicle screws are present L5-S1 on th e right. No spinal canal stenosis is present. Some moderate right foraminal narrowing may be present. Left foramen is patent. Vertebral alignment appears normal. IMPRESSION: 1. Foraminal narrowing at L4-5 and L5-S1 discussed above. This appears most severe left L4-5. 2. Postsurgical changes
== END | disposition home or self-care (01) ==
LOC: RADCTMAIN 13:34
PROVIDERS: ATTEND Psychiatry & Neurology Neurology
DX: Z01.818 Encounter for other preprocedural examination (principal); M99.73 Connective tissue and disc stenosis of intervertebral foramina of lumbar region; M51.36 Other intervertebral disc degeneration, lumbar region; M46.1 Sacroiliitis, not elsewhere classified; Z98.1 Arthrodesis status
CPT/HCPCS: 82565; 84520; 72194; 72133; 36415; Q9967

== ENCOUNTER 2024-01-10 03:25 | Emergency (ER) | payer MEDICARE ==
--- NOTE | 2024-01-10 03:54 | ED ---
Abdominal Pain HPI - General Source: patient Mode of arrival: ambulatory Limitations: no limitations - History of Present Illness MD Complaint: abdominal pain Onset/Timin -: hour(s) Location: LLQ Radiation: none Migration to: no migration Severity: severe Quality: sharp Consistency: colicky Improves With: nothing Worsens With: nothing <Shahzad Lange - Last Filed: 01/10/24 06:45> - General Source: RN notes reviewed, old records reviewed <Yuri Blum - Last Filed: 01/10/24 09:37> - General Chief Complaint: Abdominal Pain Stated Complaint: Abd pain Time Seen by Provider: 01/10/24 03:34 - History of Present Illness Initial Comments: This patient is 68-year-old man who complains of the acute onset of left lower quadrant pain. He describes it as being sharp, severe, and states that it seems to come in waves. He has not discovered worsening or relieving factors. He did noted the onset of the pain to have an episode of urination that had some u rgency and discomfort. (Shahzad Lange) - Related Data Home Medications Medication Instructions Recorded Confirmed Amitriptyline HCl 50 mg PO HS 03/12/17 06/20/23 Lisinopril-Hctz 20-25 mg 1 tab PO DAILY 03/12/17 06/20/23 [Zestoretic 20-25] Pregabalin [Lyrica] 200 mg PO BID 03/12/17 06/20/23 Simvastatin [Zocor] 40 mg PO HS 03/12/17 06/20/23 amLODIPine [Norvasc] 5 mg PO HS 03/12/17 06/20/23 oxyCODONE HCL [OxyCONTIN] 20 mg PO Q12HR 03/12/17 06/20/23 Multivitamin [Multivitamins Adult 1 each PO DAILY 06/13/23 06/20/23 Gummies] Naloxegol Oxalate [Movantik] 12.5 mg PO DAILY 06/13/23 06/20/23 Omeprazole 40 mg PO DAILY 06/13/23 06/20/23 Sucralfate [Carafate] 1 gm PO TID 06/13/23 06/20/23 traZODone HCL [Desyrel] 2 tab PO HS 10/04/23 10/11/23 Allergies Allergy/AdvReac Type Severity Reaction Status Date / Time No Known Allergies Allergy Verified 01/10/24 03:29 Review of Systems ROS Other: All systems not noted in ROS Statement are negative. Constitutional: Denies: fever, chills Respiratory: Denies: cough, dyspnea Cardiovascular: Denies: chest pain, palpitations, edema Gastrointestinal: Reports: abdominal pain. Denies: nausea, vomiting, diarrhea, constipation, melena, hematochezia Genitourinary: Reports: urgency, dysuria. Denies: frequency, hematuria, discharge, testicular pain, testicular mass Musculoskeletal: Denies: back pain Skin: Denies: rash Neurological: Denies: headache, weakness, numbness <Shahzad Lange - Last Filed: 01/10/24 06:45> ROS Other: All systems not noted in ROS Statement are negative. <Yuri Blum - Last Filed: 01/10/24 09:37> ROS Statement: Those systems with pertinent positive or pertinent negative responses have been documented in the HPI. Past Medical History Past Medical History: Hyperlipidemia, Hypertension, Sleep Apnea/CPAP/BIPAP Additional Past Medical History / Comment(s): CPAP MACHINE, TINNITUS, colonoscopy History of Any Multi-Drug Resistant Organisms: None Reported Past Surgical History: Back Surgery, Orthopedic Surgery, Tonsillectomy Additional Past Surgical History / Comment(s): RIGHT AND LEFT SHOULDER SURGERY, STIMULATOR IMPLANTED IN BACK, L5 S1 locked SI joints , morphine pump, gets filled every 62 days 07/23/23, has stomach ulcer has been off motrin x 2 weeks. Has abdominal hernia no surgery yet Past Anesthesia/Blood Transfusion Reactions: No Reported Reaction Additional Past Anesthesia/Blood Transfusion Reaction / Comment(s): no blood transfusion Past Psychological History: No Psychological Hx Reported Smoking Status: Former smoker Past Alcohol Use History: Occasional Past Drug Use History: None Reported - Past Family History Mother Family Medical History: No Reported History <Shahzad Lange - Last Filed: 01/10/24 06:45> General Exam Limitations: no limitations General appearance: alert, in no apparent distress Head exam: Present: atraumatic, normocephalic Eye exam: Present: normal appearance. Absent: scleral icterus, conjunctival injection Neck exam: Present: normal inspection Respiratory exam: Present: normal lung sounds bilaterally. Absent: respiratory distress, wheezes, rales, rhonchi, stridor Cardiovascular Exam: Present: regular rate, normal rhythm, normal heart sounds. Absent: systolic murmur, diastolic murmur, rubs, gallop GI/Abdominal exam: Present: soft. Absent: distended, tenderness, guarding, rebound, rigid, mass Extremities exam: Present: normal inspection, normal capillary refill. Absent: pedal edema, calf tenderness Back exam: Present: normal inspection. Absent: CVA tenderness (R), CVA tenderness (L) Neurological exam: Present: alert Skin exam: Present: warm, dry, intact, normal color. Absent: rash <Shahzad Lange - Last Filed: 01/10/24 06:45> Course Vital Signs 01/10/24 01/10/24 01/10/24 03:27 05:15 06:45 Temperature 97.9 F Pulse Rate 80 84 70 Respiratory 18 18 20 Rate Blood Pressure 184/100 149/83 160/86 O2 Sat by Pulse 96 98 96 Oximetry 01/10/24 07:40 Temperature 97.7 F Pulse Rate 72 Respiratory 20 Rate Blood Pressure 169/96 O2 Sat by Pulse 96 Oximetry Medical Decision Making - Lab Data Result diagrams: 01/10/24 03:56 01/10/24 03:56 <Shahzad Lange - Last Filed: 01/10/24 06:45> - Lab Data Result diagrams: 01/10/24 03:56 01/10/24 03:56 <Yuri Blum - Last Filed: 01/10/24 09:37> - Medical Decision Making Was pt. sent in by a medical professional or institution (, PA, CONCRETE M[employer]ING [employer] SUPERINTENDENT, urgent care, hospital, or fpc...) When possible be specific @ -[No] Did you speak to anyone other than the patient for history (EMS, parent, family, police, friend...)? What history was obtained from this source @ -[No] Did you review nursing and triage notes (agree or disagree)? Why? @ -[I reviewed and agree with nursing and triage notes] Were old charts reviewed (outside hosp., previous admission, EMS record, old EKG, old radiological studies, urgent care reports/EKG's, fpc records)? Report findings @ -[No old charts were reviewed] Differential Diagnosis (chest pain, altered mental status, abdominal pain women, abdominal pain men, vaginal bleeding, weakness, fever, dyspnea, syncope, headache, dizziness, GI bleed, back pain, seizure, CVA, palpatations, mental health, musculoskeletal)? @ -[Differential Abdominal Pain Men: Appendicitis, cholecystitis, diverticulosis, ischemic bowel, pancreatitis, hepatitis, UTI, gastroenteritis, AAA, incarcerated hernia, bowel obstruction, constipation, inflammatory bowel, hepatitis, peptic ulcer disease, splenic infarction, perforated viscus, testicular torsion, this is not meant to be an all-inclusive list EKG interpreted by me (3pts min.). @ -[As above] X-rays interpreted by me (1pt min.). @ -[None done] CT interpreted by me (1pt min.). @ -[None done] U/S interpreted by me (1pt. min.). @ -[None done] What testing was considered but not performed or refused? (CT, X-rays, U/S, labs)? Why? @ -[None] What meds were considered but not given or refused? Why? @ -[None] Did you discuss the management of the patient with other professionals (professionals i.e. , PA, CONCRETE [employer] SUPERINTENDENT, lab, RT, psych nurse, social media job titles, bell captain, teacher, naval gunfire liaison officer, embedded case manager)? Give summary @ -[No] Was smoking cessation discussed for >3mins.? @ -[No] Was critical care preformed (if so, how long)? @ -[No] Were there social determinants of health that impacted care today? How? (Homelessness, low income, unemployed, alcoholism, drug addiction, transportat ion, low edu. Level, literacy, decrease access to med. care, intermediate, rehab)? @ -[No] Was there de-escalation of care discussed even if they declined (Discuss DNR or withdrawal of care, Hospice)? DNR status @ -[No] What co-morbidities impacted this encounter? (DM, HTN, Smoking, COPD, CAD, Cancer, CVA, ARF, Chemo, Hep., AIDS, mental health diagnosis, sleep apnea, morbid obesity)? @ -[None] Was patient admitted / discharged? Hospital course, mention meds given and route, prescriptions, significant lab abnormalities, going to OR and other pertinent info. @ -[hospital course] Undiagnosed new problem with uncertain prognosis? @ -[No] Drug Therapy requiring intensive monitoring for toxicity (Heparin, Nitro, Insulin, Cardizem)? @ -[No] Were any procedures done? @ -[No] Diagnosis/symptom? @ -[default] Acute, or Chronic, or Acute on Chronic? @ -[default] Uncomplicated (without systemic symptoms) or Complicated (systemic symptoms)? @ -[default] Side effects of treatment? @ -[No] Exacerbation, Progression, or Severe Exacerbation? @ -[No] Poses a threat to life or bodily function? How? (Chest pain, [place], [place], pneumonia, PE, COPD, DKA, ARF, appy, cholecystitis, CVA, Diverticulitis, Homicidal, Suicidal, threat to staff... and all critical care pts) @ -[No] (Shahzad Lange) Was patient admitted / discharged? Hospital course, mention meds given and route, prescriptions, significant lab abnormalities, going to OR and other pertinent info. @ -Patient's CAT scan showed no acute abnormality but it did show a significant stool burden. Patient was given an enema had a large bowel movement was feeling better. Patient was requesting to be discharged home. Undiagnosed new problem with uncertain prognosis? @ -No Drug Therapy requiring intensive monitoring for toxicity (Heparin, Nitro, Insulin, Cardizem)? @ -No Were any procedures done? @ -No Diagnosis/symptom? @ -Constipation Acute, or Chronic, or Acute on Chronic? @ -Acute Uncomplicated (without systemic symptoms) or Complicated (systemic symptoms)? @ -Uncomplicated Side effects of treatment? @ -No Exacerbation, Progression, or Severe Exacerbation? @ -No Poses a threat to life or bodily function? How? (Chest pain, [place], [place], pneumonia, PE, COPD, DKA, ARF, appy, cholecystitis, CVA, Diverticulitis, Homicidal, Suicidal, threat to staff... and all critical care pts) @ -No Diagnosis/symptom? @ -Abdominal pain Acute, or Chronic, or Acute on Chronic? @ -Acute Uncomplicated (without systemic symptoms) or Complicated (systemic symptoms)? @ -Complicated Side effects of treatment? @ -None Exacerbation, Progression, or Severe Exacerbation] @ -No Poses a threat to life or bodily function? @ -No (Yuri Blum) - Lab Data Lab Results 05/02/24 05/02/24 05/02/24 Range/Units 03:56 03:56 03:56 WBC 5.6 (3.8-10.6) k/uL RBC 4.27 L (4.30-5.90) m/uL Hgb 13.4 (13.0-17.5) gm/dL Hct 40.7 (39.0-53.0) % MCV 95.5 (80.0-100.0) fL MCH 31.5 (25.0-35.0) pg MCHC 33.0 (31.0-37.0) g/dL RDW 14.0 (11.5-15.5) % Plt Count 187 (150-450) k/uL MPV 9.2 Neutrophils % 72 % Lymphocytes % 21 % Monocytes % 6 % Eosinophils % 0 % Basophils % 0 % Neutrophils # 4.1 (1.3-7.7) k/uL Lymphocytes # 1.2 (1.0-4.8) k/uL Monocytes # 0.4 (0-1.0) k/uL Eosinophils # 0.0 (0-0.7) k/uL Basophils # 0.0 (0-0.2) k/uL Sodium 136 L (137-145) mmol/L Potassium 4.5 (3.5-5.1) mmol/L Chloride 103 (98-107) mmol/L Carbon Dioxide 26 (22-30) mmol/L Anion Gap 7 mmol/L BUN 16 (9-20) mg/dL Creatinine 0.61 L (0.66-1.25) mg/dL Est GFR (CKD-EPI)AfAm >90 (>60 ml/min/1.73 sqM) Est GFR (CKD-EPI)NonAf >90 (>60 ml/min/1.73 sqM) Glucose 125 H (74-99) mg/dL Calcium 8.8 (8.4-10.2) mg/dL Total Bilirubin 0.4 (0.2-1.3) mg/dL AST 36 (17-59) U/L ALT 36 (4-49) U/L Alkaline Phosphatase 74 (38-126) U/L Total Protein 6.6 (6.3-8.2) g/dL Albumin 4.2 (3.5-5.0) g/dL Amylase 58 (30-110) U/L Lipase 284 (23-300) U/L Urine Color Colorless Urine Appearance Cloudy (Clear) Urine pH 7.5 (5.0-8.0) Ur Specific [place] 1.007 (1.001-1.035) Urine Protein Negative (Negative) Urine Glucose (UA) Negative (Negative) Urine Ketones Negative (Negative) Urine Blood Negative (Negative) Urine Nitrite Negative (Negative) Urine Bilirubin Negative (Negative) Urine Urobilinogen <2.0 (<2.0) mg/dL Ur Leukocyte Esterase Negative (Negative) Urine RBC <1 (0-5) /hpf Urine WBC <1 (0-5) /hpf Amorphous Sediment Rare H (None) /hpf Disposition <Shahzad Lange - Last Filed: 01/10/24 06:45> Is patient prescribed a controlled substance at d/c from ED?: No Time of Disposition: 09:36 <Yuri Blum - Last Filed: 01/10/24 09:37> Clinical Impression: Abdominal pain, Constipation Disposition: HOME SELF-CARE Instructions (If sedation given, give patient instructions): Abdominal Pain (ED), Constipation (ED), High Fiber Diet (ED) Additional Instructions: Patient should start taking Benefiber twice a day Patient should return to the emergency department if symptoms worsen or there are any new symptoms. Referrals: Tomeka Pino DO [Primary Care Provider] - 1-2 days
[2024-01-10] MEDS: MORPHINE SULFATE 4 MG/ML SYRINGE IV STA ×3 (04:00→07:40)
[2024-01-10] MEDS: KETOROLAC 15 MG/ML 1 ML VIAL IVP STA (04:00)
[2024-01-10 04:19] LABS: ALT 36 U/L (4-49); AST 36 U/L (17-59); African American GFR (CKD) >90 (>60 ml/min/1.73 sqM); Albumin 4.2 g/dL (3.5-5.0); Alkaline Phosphatase 74 U/L (38-126); Amylase 58 U/L (30-110); Anion Gap 7 mmol/L; Blood Urea Nitrogen 16 mg/dL (9-20); Calcium 8.8 mg/dL (8.4-10.2); Carbon Dioxide 26 mmol/L (22-30); Chloride 103 mmol/L (98-107); Glucose 125 mg/dL (74-99); Lipase 284 U/L (23-300); Non-African American GFR(CKD) >90 (>60 ml/min/1.73 sqM); Potassium 4.5 mmol/L (3.5-5.1); Sodium 136 mmol/L (137-145); Total Bilirubin 0.4 mg/dL (0.2-1.3); Total Protein 6.6 g/dL (6.3-8.2)
[2024-01-10 04:26] LABS: Basophils % (A) 0 %; Eosinophils % (A) 0 %; HCT 40.7 % (39.0-53.0); HGB 13.4 gm/dL (13.0-17.5); Lymphocytes # (A) 1.2 k/uL (1.0-4.8); Lymphocytes % (A) 21 %; MCH 31.5 pg (25.0-35.0); MCV 95.5 fL (80.0-100.0); Mean Platelet Volume 9.2; Monocytes # (A) 0.4 k/uL (0-1.0); Monocytes % (A) 6 %; Neutrophils # (A) 4.1 k/uL (1.3-7.7); Neutrophils % (A) 72 %; Platelet Count 187 k/uL (150-450); RBC 4.27 m/uL (4.30-5.90); WBC 5.6 k/uL (3.8-10.6)
[2024-01-10 04:39] LABS: Amorphous Sediment,Urine Rare /hpf; Appearance,Urine Cloudy (Clear); Bilirubin,Urine Negative (Negative); Blood,Urine Negative (Negative); Color,Urine Colorless; Glucose,Urine (UA) Negative (Negative); Ketones,Urine Negative (Negative); Leukocyte Esterase,Urine Negative (Negative); Nitrite,Urine Negative (Negative); PH, Urine 7.5 (5.0-8.0); Protein,Urine Negative (Negative); RBC,Urine <1 /hpf (0-5); Specific Gravity,Urine 1.007 (1.001-1.035); Urobilinogen,Urine <2.0 mg/dL (<2.0); WBC,Urine <1 /hpf (0-5)
[2024-01-10 07:07] VITALS: RESP 20
--- NOTE | 2024-01-10 07:36 | CT ---
EXAM: CT Abdomen and Pelvis Without Intravenous Contrast CLINICAL HISTORY: Contagious abdominal pain, L flank TECHNIQUE: Axial computed tomography images of the abdomen and pelvis without intravenous contrast. CTDI is 24.4 mGy and DLP is 1472 mGy-cm. This CT exam was performed using one or more of the following dose reduction techniques: automated exposure control, adjustment of the mA and/or kV according to patient size, and/or use of iterative reconstruction technique. COMPARISON: July 30, 2023 FINDINGS: ABDOMEN: Liver: Unremarkable. Gallbladder and bile ducts: Unremarkable. No calcified stones. No ductal dilation. Pancreas: Unremarkable. No ductal dilation. Spleen: Unremarkable. No splenomegaly. Adrenals: Unremarkable. No mass. Kidneys and ureters: Very small nonobstructing calculi in the left kidney. Stomach and bowel: Increased amount of stool within the rectum which may represent constipation. Posterior gastric fundal diverticulum containing multiple pills. No obstruction. No mucosal thickening. PELVIS: Appendix: No findings to suggest acute appendicitis. Bladder: Unremarkable. No stones. ABDOMEN and PELVIS: Intraperitoneal space: Unremarkable. No free air. No significant fluid collection. Bones/joints: Previous anterior and posterior fusion at L5/S1. Soft tissues: Unremarkable. Vasculature: Unremarkable. No abdominal aortic aneurysm. Lymph nodes: Unremarkable. No enlarged lymph nodes. IMPRESSION: No acute findings in the abdomen or pelvis.
[2024-01-10 10:08] VITALS: BP 163/88; PULSE 74; TEMP 97.6
== END 2024-01-10 09:50 | disposition home or self-care (01) ==
LOC: EC 03:25
DX: K59.00 Constipation, unspecified (principal); Z87.891 Personal history of nicotine dependence
CPT/HCPCS: 36415; 80053; 82150; 83690; 85025; 81001; 74176; 99284; 96374; 96375; 96376 ×2; J2270; J1885

== ENCOUNTER → 2024-01-22 | Outpatient (CLI) | payer MEDICARE ==
--- NOTE | 2024-01-23 11:10 | CA ---
Transthoracic Echo Report Name: Yimi Perdomo Age: 68 Gender: M : 1955 Exam Date: 01/22/2024 14:15 Exam Location: [facility] Ht (in): 70 Wt (lb): 230 Ordering Physician: Tomeka Pino DO Attending/Referring Phys: Beryl Rene [facility] Work Station Support Specialist Jeannette Garsia RDCS Procedure CPT: Indications: R07.89 other chest pain Cardiac Hx: Technical Quality: Fair Contrast 1: Total Dose (mL): Contrast 2: Total Dose (mL): MEASUREMENTS (Male / Female) Normal Values 2D ECHO LV Diastolic Diameter PLAX 3.9 cm 4.2 - 5.9 / 3.9 - 5.3 cm LV Systolic Diameter PLAX 1.8 cm IVS Diastolic Thickness 1.3 cm 0.6 - 1.0 / 0.6 - 0.9 cm LVPW Diastolic Thickness 1.5 cm 0.6 - 1.0 / 0.6 - 0.9 cm LV Relative Wall Thickness 0.7 RV Internal Dim ED PLAX 3.9 cm LA Volume 46.5 cm??? 18 - 58 / 22 - 52 cm??? LA Volume Index 20.2 cm???/m??? 16 - 28 cm???/m??? M-MODE Aortic Root Diameter MM 3.1 cm LA Systolic Diameter MM 4.1 cm LA Ao Ratio MM 1.3 AV Cusp Separation MM 2.3 cm DOPPLER AV Peak Velocity 159.0 cm/s AV Peak Gradient 10.1 mmHg AV Mean Velocity 109.2 cm/s AV Mean Gradient 5.5 mmHg AV Velocity Time Integral 29.5 cm LVOT Peak Velocity 173.8 cm/s LVOT Peak Gradient 12.1 mmHg LVOT Velocity Time Integral 26.7 cm Mitral E Point Velocity 67.4 cm/s Mitral A Point Velocity 92.4 cm/s Mitral E to A Ratio 0.7 MV E' Velocity 9.0 cm/s Mitral E to MV E' Ratio 7.5 TR Peak Velocity 228.5 cm/s TR Peak Gradient 20.9 mmHg FINDINGS Left Ventricle Mildly increased left ventricular wall thickness. Left ventricular cavity size normal. Normal left ventricular systolic function with no obvious regional wall motion abnormalities. Left ventricular ejection fraction is estimated at 55-60 %. Normal left ventricular diastolic filling pattern. Right Ventricle Mild right ventricular dilatation. Right ventricular systolic pressure within normal limits. Right Atrium Normal right atrial size. Left Atrium Normal left atrial size. Mitral Valve Structurally normal mitral valve. Mild mitral annular calcification. Trace to mild mitral regurgitation. Aortic Valve Trileaflet aortic valve. No aortic valve stenosis or regurgitation.aortic valve sclerosis. Tricuspid Valve Structurally normal tricuspid valve. Mild tricuspid regurgitation. Pulmonic Valve Structurally normal pulmonic valve. Pericardium No pericardial effusion. Aorta Normal size aortic root and proximal ascending aorta. CONCLUSIONS 1. Normal left ventricular size and systolic function 2. Trace to mild mitral and mild tricuspid regurgitation Previewed by: Dr. Miryam Lomax MD (Electronically Signed) Final Date: 23 Jan 2024 11:09
== END | disposition home or self-care (01) ==
LOC: RADECHMAIN 14:10
PROVIDERS: ATTEND Family Medicine
DX: I34.0 Nonrheumatic mitral (valve) insufficiency (principal); I36.1 Nonrheumatic tricuspid (valve) insufficiency
CPT/HCPCS: 93306

== ENCOUNTER → 2024-02-29 | Day surgery (SDC) | payer MEDICARE ==
[2024-02-29] MEDS: diazePAM 5 MG TAB PO STA (08:34)
[2024-02-29 08:36] VITALS: TEMP 98
--- NOTE | 2024-02-29 12:47 | FL ---
EXAMINATION TYPE: FL myelogram lumbosacral DATE OF EXAM: 02/29/2024 10:19 AM CLINICAL INDICATION:Male, 69 years old with history of M54.50 LBP, M47.816, M48.061; COMPARISON: None ATTENDING: Braden Floyd D.O. FINDINGS: Informed consent was obtained including discussion of the risks and benefits. Timeout was taken per p rotocol. Real-time fluoroscopy was performed to localize the lumbar spine access site. The patient wa s prepped and draped. Under sterile technique with local anesthesia a 22-gauge spinal needle was intr oduced into the arachnoid space with return of clear CSF. A total of 10 cc of Isovue-300 M was inject ed with appropriate opacification of the thecal sac. ISOVUE 300M, 10 ML INJECTED. 5 WASTED. CHRONIC LOWER BACK PAIN., LT LEG NUMBNESSS. BACK SX (3) SCREWS IN BACK, MORPHINE PAIN PUMP. MJL INJECTED. RAD NURSING BOOM. MO. 33 SECS FL TIME. Total fluoroscopy time was 33 SECS FL TIME. Total fluoroscopic images 0. Radiographs taken: 6 DAP: Not Reported by machine [email or web address] IMPRESSION: Successful lumbar puncture with injection for CT myelogram. CT pending.
--- NOTE | 2024-02-29 13:07 | CT ---
EXAMINATION TYPE: CT lumbar spine w con DATE OF EXAM: 02/29/2024 COMPARISON: none HISTORY: lower lumbar pain down left leg CT DLP: 1750 mGycm Automated exposure control for dose reduction was used. CONTRAST: CT scan of the lumbar is performed , patient injected with 10cc mL of Isovue M300. Enhanced CT of the lumbar spine was performed. Bone and soft tissue window settings are submitted as well as coronal and sagittal reconstructions. L1-L2: Normal disc space height. No disc herniation protrusion or central stenosis. No facet joint arthropathy. No evidence for foraminal encroachment. L2-L3: Mild degenerative disc space narrowing. Broad-based subligamentous disc bulge or herniation po sterocentrally into the left stenting far laterally into the left. There is left lateral recess steno sis and left foraminal encroachment. Borderline central stenosis is present. L3-L4: Mild degenerative disc space narrowing. Posterior disc bulge with mild effacement of the ventr al thecal sac. No evidence for central stenosis or lateral recess stenosis. Mild right foraminal encr oachment. L4-L5: Mild degenerative disc space narrowing. Posterior disc bulge with mild effacement of the ventr al thecal sac. No evidence for central stenosis or lateral recess stenosis. Mild right foraminal encr oachment. L5-S1: Postoperative changes of the laminectomy. Intervertebral spacer is in place as well as pedicul ar screws. Streak artifact mildly limits the study. Normal postoperative alignment. No evidence for r ecurrent or residual process. IMPRESSION: 1. Postoperative changes at L5-S1 as discussed above. 2. Multilevel degenerative disc disease. At L2-3 there is moderate broad-based subligamentous bulge o r herniation resulting in left lateral recess stenosis, borderline central stenosis and left neural f oraminal encroachment. See above.
[2024-02-29 13:10] VITALS: BP 131/65; PULSE 66; RESP 16
== END ==
LOC: RADPROMAIN 07:51
PROVIDERS: ATTEND Orthopaedic Surgery
DX: M48.061 Spinal stenosis, lumbar region without neurogenic claudication (principal); M51.36 Other intervertebral disc degeneration, lumbar region; G89.29 Other chronic pain
CPT/HCPCS: 62304; 72132; Q9967

== ENCOUNTER → 2024-06-05 | Outpatient (CLI) | payer MEDICARE | END | disposition home or self-care (01) | LOC: LABPAT 11:11 | PROVIDERS: ATTEND Orthopaedic Surgery | DX: Z01.818 Encounter for other preprocedural examination | CPT/HCPCS: 86850; 86900; 86901; 87070 ==

== ENCOUNTER 2024-06-09 06:12 | Day surgery (SDC) | payer MEDICARE ==
[~2024-06-09 06:12] MED LIST changes: +ACETAMINOPHEN TAB 500 MG TAB PO PRN; -LIDOCAINE 1% (10MG/ML) FOR IV START INTRADERMA PRN; +TRANEXAMIC 1,000 MG/100ML-NACL 1,000 MG in SALINE 1 100ML.BAG IVPB PRN
[2024-06-09] MEDS: IV FLUID CONTINUATION 1,000 ML IV ONE ×3 (06:56→07:25)
--- NOTE | 2024-06-09 07:02 | P.HPOR ---
History of Present Illness H&P Date: 05/21/24 .D:Date: 05/21/24 : 11:16am .T:Title: [facility] IMPRESSION: It was my pleasure to have seen and examined Yimi. I reviewed the patient's clinical syndrome, physical findings, and imaging studies during the appointment today. It is my impression that the patient has a diagnosis of. 1. L3-S1 adjacent segment disease with stenosis 2. L3-L4, L4-L5 foraminal stenosis 3. L2-L3 paracentral disc herniation, left 4. Bilateral lower extremity radiculopathy 5. Left lower extremity weakness 6. Left sacroiliitis 7. h/o lumbar fusion (1997) Spine Surgery Clinical and Risk Review Yimi is a 69 yo male presenting for evaluation of LLE radiculopathy, weakness, low back pain, nonfunctional stimulator and issues related to this. It was my pleasure to have seen and examined Yimi. In our visit today we have had a chance to go over subjective complaints, physical examination findings and treatments including the natural course history without intervention and various interventional options. The patients imaging demonstrates: stimulator in place entering around T12/L1 region. There is hardware at L5S1 noted unilateral screws. JOHN cage in place. No evidence for fracture. Loosening of the screws noted. No lesions. L2-3 there is foraminal stenosos on the left that is moderate to severe with central and lateral recess stenosis that is moderate. On physical exam, Yimi demonstrates Pain with motion of the LLE. There is + SLR on the left with weakness in KF/KE as well as HF on the left. There is minor weakness with DF/PF that is more pain related. Neg clonus. Neg babinski, Neg hoffmans b/l. I have explained to the patient that as their condition progresses it will cause further neurological deficits and eventual paralysis. Based on the patients imaging, physical exam, and the rapid progression and disabling nature of their symptoms, at this time I recommend surgery in the form or a: L2-3 LEFT laminoforaminotomy with stimulator removal and possible hardware removal. I discussed the risk and benefits of this procedure at length with Yimi. The patient agreed to considered pursuing the procedure abovementioned. Prior to surgery, she should follow up with her PCP (Cardio, ID, IM etc) for clearance. Questions were invited and answered, and the patient wishes to proceed as outlined below. Currently, I am recommendin.L2-3 LEFT laminoforaminotomy with stimulator removal. 2.Follow up with PCP for surgical clearance 3.Review of surgical risks and benefits as well as an educational packet on the proposed surgical procedure. Risks: All surgical procedures come with inherent risks, including those related to positioning, anesthesia, intraoperative findings, and postoperative complications. It is important to understand that surgery does not come with any guarantee of a successful outcome as complications and adverse events are always possible. The patient was given a handout in office today discussing the surgical procedure and risks associated with the intervention, both of which were discussed with the patient. These risks include but are not limited to the following: * Experiencing same, different or even worse symptoms in back, neck, arms, or legs compared to before surgery. Requiring further surgery or other forms of treatment presently or at some time in the future at same or other levels of the intended spine surgery. On an extreme but fortunately relatively rare basis severe complication such as blindness, stroke, heart attack, temporary and/or permanent nerve injury, paralysis, coma, or may occur, sometimes without known explanation. Surgical complications may include but are not limited to risk of infection, fluid accumulation in the surgical dissection site, including a seroma or hematoma, that requires additional surgery, wound drainage, bleeding, new numbness or weakness, vision changes/loss, spinal fluid leakage, non-healing and/or infected incision, headaches, difficulty or inability to swallow, hoarseness, hemopneumothorax, pneumothorax, impotence, retrograde ejaculation, vaginal dryness; injury to nerves, spinal cord, blood vessels, lymphatics or other vital organs (i.e., bowel injury, injury to the great vessels); heterotopic bone formation; complications related to the hardware such as screws, rods, cages including misplaced hardware, device failure, instrumentation at the wrong spine level, hardware fracture/breakage, or hardware loosening; vertebral failure of the spinal column above or below the newly placed hardware; retained surgical instrumentations or devices and the need for further surgery. * Medical risks of the planned spine surgery include but are not limited to generalized Infections to the whole body or local areas outside of the surgical site (sepsis), heart attack, bleeding, anaphylaxis, meningitis, seizure, epilepsy, hearing loss, burn hutchinson, laceration of the head or other areas of the body, bruising, hypersensitivity of the skin, bladder over distension; allergic reaction; shoulder injury related to positioning; fat, blood and air clots to other areas of the body like heart, lungs, brain; fail ure of internal organs such as lungs, kidneys, liver and excessive bleeding. If blood transfusions are necessary, note that transfusions may cause intolerance reactions such as anaphylaxis or other complex reactions. Despite best efforts, the results of spine surgery might not heal in terms of bone, soft tissues such as skin, fascia, ligaments, and joints. Additionally, in order to achieve best possible results, spine surgery may be carried out beyond the initially planned levels and involve decompression, fusion including insertion of hardware at levels other than the original intended area of surgical interest change some portions of the procedure in order to ensure the best possible outcomes. With spine surgery and spinal fusion, there are different off label uses of instrumentation (devices, implants and hardware) as well as biological substances (bone morphogenic proteins, demineralized bone matrix) as well as using extra bone from allograft sources (i.e. cadaver bone) or autograft (iliac crest bone, ribs, or the spine itself). The patient has been given information about these practices and their inherent risks and benefits. The patient has had a chance to review all the listed information, has been given print outs detailing this information, and has had all his/her questions answered to their satisfaction. It was my pleasure to have seen and examined Yimi. In our visit today we have had a chance to go over my understanding of our patient's current condition, the natural course history without intervention and various interventional options. Questions were invited and answered, and the patient wishes to proceed as outlined above. I have seen and examined the patient for 25 minutes and we have spent more than 50% of the time in repeat and detailed counseling about the patient's condition, its natural course history with out and as much as can be predicted with surgery and re-review of various surgical treatment options. In conclusion, Yimi requested we proceed with the above suggested surgery and are willing to accept risks and limitations of the suggested surgery as nature of the disease process and our best attempts at treatment for the condition. Thank you again for allowing us to be part of your patient's care. Please don't hesitate to contact me if you have any further questions. # SIGNED BY Tristan Coyne (GOO)05/21/2024 12:41PM Past Medical History Past Medical History: Hyperlipidemia, Hypertension, Sleep Apnea/CPAP/BIPAP Additional Past Medical History / Comment(s): CPAP MACHINE, TINNITUS, colonoscopy History of Any Multi-Drug Resistant Organisms: None Reported Past Surgical History: Back Surgery, Orthopedic Surgery, Tonsillectomy Additional Past Surgical History / Comment(s): RIGHT AND LEFT SHOULDER SURGERY, STIMULATOR IMPLANTED IN BACK, L5 S1 locked SI joints , morphine pump, gets filled every 62 days 07/23/23, has stomach ulcer has been off motrin x 2 weeks. Has abdominal hernia no surgery yet, hardware in back from back surgeries Past Anesthesia/Blood Transfusion Reactions: No Reported Reaction Additional Past Anesthesia/Blood Transfusion Reaction / Comment(s): no blood transfusion Smoking Status: Former smoker - Past Family History Mother Family Medical History: No Reported History Medications and Allergies Home Medications Medication Instructions Recorded Confirmed Type Lisinopril-Hctz 20-25 mg 1 tab PO DAILY 03/12/17 06/09/24 History [Zestoretic 20-25] amLODIPine [Norvasc] 5 mg PO DAILY 03/12/17 06/09/24 History traZODone HCL [Desyrel] 100 mg PO HS 06/13/23 06/09/24 History Atorvastatin Calcium [Lipitor] 80 mg PO HS 01/10/24 06/09/24 History Baclofen [Lioresal] 20 mg PO BID PRN 01/10/24 06/09/24 History Ibuprofen [Motrin] 800 mg PO BID PRN 01/10/24 06/06/24 History Patient Own Pump 0 bag INFILTRATI DIRECTED 01/10/24 06/09/24 History Pregabalin [Lyrica] 100 mg PO BID 01/10/24 06/09/24 History oxyCODONE HCL [OxyIR] 5 mg PO TID PRN 01/10/24 06/09/24 History Allergies Allergy/AdvReac Type Severity Reaction Status Date / Time No Known Allergies Allergy Verified 06/09/24 06:47 Physical Examination Osteopathic Statement: *. No significant issues noted on an osteopathic structural exam other than those noted in the History and Physical/Consult.
[2024-06-09] MEDS: GABAPENTIN 300 MG CAP PO PRN (07:09)
[2024-06-09] MEDS: ONDANSETRON 4 MG/2 ML VIAL IVP PRN (07:09)
[2024-06-09] MEDS: LACTATED RINGERS 1,000 ML BAG IV STA (07:19)
[2024-06-09] MEDS: DEXAMETHASONE SOD PHOSPHATE 4 MG/ML 1 ML VIAL IVP STA (07:27)
[2024-06-09] MEDS ORDERED: LIDOCAINE 1% INJ 10MG/ML (20 ML MDV) ONE (07:30)
[2024-06-09] MEDS ORDERED: NEOSTIGMINE 1 MG/ML 10 ML VIAL ONE (07:30)
[2024-06-09] MEDS ORDERED: TRANEXAMIC 1,000 MG/100ML-NACL PREMIX BAG ONE (07:30)
[2024-06-09] MEDS ORDERED: ROCURONIUM 10 MG/ML (5 ML VIAL) IV ONE (07:30)
[2024-06-09] MEDS ORDERED: PROPOFOL 10 MG/ML 20 ML VIAL IV ONE (07:30)
[2024-06-09] MEDS ORDERED: GLYCOPYRROLATE 0.2 MG/ML 2 ML VIAL ONE (07:30)
[2024-06-09] MEDS ORDERED: ePHEDrine 50 MG/ML 1 ML VIAL ONE (07:30)
[2024-06-09] MEDS ORDERED: PHENYLEPHRINE 10 MG/ML VIAL ONE (07:30)
[2024-06-09] MEDS ORDERED: MIDAZOLAM 2 MG/2 ML VIAL ONE (07:30)
[2024-06-09] MEDS ORDERED: fentaNYL (PF) 50 MCG/ML 2 ML AMP ONE (07:30)
[2024-06-09] MEDS ORDERED: SUCCINYLCHOLINE CHLORIDE 200 MG/10 ML VIAL IV ONE (07:30)
[2024-06-09] MEDS: THROMBIN (BOVINE) 5,000 UNIT VIAL TOPICAL ONE (08:24)
[2024-06-09] MEDS: ceFAZolin 3,000 MG in SODIUM CHLORIDE 0.9% IRRIGATIO 3,000 ML IRRIGATION ONE (08:28)
[2024-06-09] MEDS: GELATIN SPONGE,ABSORBABLE 1 GM POWDER TOPICAL ONE (08:44)
[2024-06-09] MEDS: VANCOMYCIN 1,000 MG VIAL MISCELLANE ONE (08:55)
[2024-06-09] MEDS: BUPIVACAINE (PF) 0.5% 30 ML VIAL SQ ONE ×2 (09:07)
[2024-06-09] MEDS: LIDOCAINE 2%-EPI 1:100,000 20 ML VIAL SQ ONE (09:08)
[2024-06-09] MEDS: HYDROmorphone 0.5 MG/0.5 ML SYRINGE IVP PRN (09:45)
--- NOTE | 2024-06-09 10:26 | P.OP ---
Date of Procedure: 06/09/24 Preoperative Diagnosis: L2-3 STENOSIS CENTRAL AND FORAMINAL LLE RADICULOPATHY NONFUNCTIONAL 14 LEAD TWO PRONG STIMULATOR AND BATTERY PACK/PULSE GENERATOR Postoperative Diagnosis: L2-3 STENOSIS CENTRAL AND FORAMINAL LLE RADICULOPATHY NONFUNCTIONAL 14 LEAD TWO PRONG STIMULATOR AND BATTERY PACK/PULSE GENERATOR Procedure(s) Performed: L2-3 LAMINOFORAMINOTOMY LEFT REMOVAL OF NON FUNCTIONAL 14 PRONG, 2 LEAD STIMULATOR REQUIRING LAMINECTOMY (REMOTE TO ABOVE SITE) REMOVAL OF BATTERY PACK AND PULSE GENERATOR Implants: NONE Anesthesia: GETA Surgeon: Tristan Coyne Estimated Blood Loss (ml): 50 IV fluids (ml): 1,200 Urine output (ml): 0 Pathology: none sent Condition: stable Disposition: PACU Indications for Procedure: Yimi is a 69 yo male presenting for evaluation of LLE radiculopathy, weakness, low back pain, nonfunctional stimulator and issues related to this. It was my pleasure to have seen and examined Yimi. In our visit today we have had a chance to go over subjective complaints, physical examination findings and treatments including the natural course history without intervention and various interventional options. The patients imaging demonstrates: stimulator in place entering around T12/L1 region. There is hardware at L5S1 noted unilateral screws. JOHN cage in place. No evidence for fracture. Loosening of the screws noted. No lesions. L2-3 there is foraminal stenosos on the left that is moderate to severe with central and lateral recess stenosis that is moderate. On physical exam, Yimi demonstrates Pain with motion of the LLE. There is + SLR on the left with weakness in KF/KE as well as HF on the left. There is minor weakness with DF/PF that is more pain related. Neg clonus. Neg babinski, Neg hoffmans b/l. I have explained to the patient that as their condition progresses it will cause further neurological deficits and eventual paralysis. Based on the patients imaging, physical exam, and the rapid progression and disabling nature of their symptoms, at this time I recommend surgery in the form or a: L2-3 LEFT laminoforaminotomy with stimulator removal and possible hardware removal. I discussed the risk and benefits of this procedure at length with Yimi. The patient agreed to considered pursuing the procedure abovementioned. Prior to surgery, she should follow up with her PCP (Cardio, ID, IM etc) for clearance. Questions were invited and answered, and the patient wishes to proceed as outlined below. Currently, I am recommendin.L2-3 LEFT laminoforaminotomy with stimulator removal. Description of Procedure: L2-3 LAMINOFORAMINOTOMY LEFT; SPINAL STIMULATOR REMOVAL The patient was seen and examined in the preoperative area. All preoperative protocols were followed. Informed consent was obtained, risks and benefits of the procedure were discussed at length. Risks including bleeding infection damage to the surrounding tissue and risk of reoperation were discussed with the patient. Risk of anesthesia up to and including was discussed with the patient. These are outlined in the risk review. They were willing to accept these risks and all of the risks of surgery. The patient was given a weight- based dose of antibiotics in the form of [Ancef]. The patient was seen and evaluated by the anesthesia team who deemed them fit for surgery. The site was marked, the patient was willing to proceed with the procedure. The patient was transferred to the operative suite by the Department of anesthesia. They were then drifted off to sleep by the department anesthesia and [GETA] was performed. The patient tolerated this well. [De La O catheter was placed by nursing staff, atraumatically]. Once confirmation of lines and ventilation the patient was transferred to a [prone Ronnie table very carefully]. All bony prominences including wrists, elbows, axilla, chest, hips, and thighs, and feet were padded very well. Special attention was paid to the genitalia and these were padded accordingly. SCDs were placed on bilateral lower extremities and were connected. Arms were well padded and placed [on arm boards up and out in the 90/90 position]. Once in position, again we confirmed good ventilation capabilities and that lines were running appropriately. The patient's [Lumbar] spine was then exposed. 1010s were placed outlining the incision site. Standard alcohol was used to clean the incision site and allowed to dry. C-arm was used to biomark the patient and confirm level for incision which was marked with a skin marker. Operative briefing was performed with all teams and everyone in agreement to proceed. The patient was then prepped and draped in a normal sterile fashion. Timeout was then performed and all parties were in agreement with the procedure to be performed. Midline skin incision made and dissection taken down through the subq till fascia was identified. The leads for the stimulator were encountered in the subq here just over the L1-2 region. These were followed down to the spine and back to the tunneled area on the left where they were going to the pulse generator. The leads deep in the spine were then visualized with fluroscopy and subperiosteal dissection taken down over the lamina of L1-3 Facet joints located and protected. [place] 4 was placed at the pars of L2 to fadia and lateral image taken to confirm levels for operation. Laminotomy was then done over this area to remove the leads. Leads were removed and area irrigated. We then turned our attention to L2-3. LEFT laminoforaminotomy, partial medial facetectomy and foraminotomies were then performed at L2-3 using high speed homero, 2-0 upbiting curette, 6-0 kerrison and 4-0 kerrison rongeurs. Ligamentum was removed. Deep facet joints capsule was removed along with cysts that were found deep from the facets. Foraminotomies done with kerrison and checked with a Marcos ball probe. Once decompression completed, meticulous hemostasis was done with floseal, paddies and gel foam. The wound bed was then irrigated with 6 L Abx Anfect and Gen followed by 6L NSS. The wound was inspected. Good decompression noted with no injury. X Ray taken AP and lateral with markers to fadia the decompression. Surgicel was placed on the dura. 2g Vanco powder placed in the wound. Skin incision was then made over the pulse generator and the battery pack and generator and this was removed. The area was then debrided of the capsule and this was removed. We then irrigated this wound copiously and vancomycin placed deep in the wound. We then proceeded with closure. #1 PDS placed in the facia. 0 Vicryl placed in the deep subq and 2-0 in the superficial. [place] placed in the skin. Wound edges approximated very well. The wound was then cleaned and dressed sterilly with Optifoam dressing, drain sponge and tegaderm. The patient was transferred back to their hospital bed atraumatically. [Drain continued to hold suction and was in a good position]. Patient was then awakened and extubated by the department of anesthesia having tolerated the procedure very well with no complications. They were transferred to the postoperative care unit in stable condition.
[2024-06-09] MEDS: IPRATROPIUM-ALBUTEROL 3 ML NEB INHALATION STA (11:10)
[2024-06-09] MEDS: MAGNESIUM OXIDE 400 MG TAB PO STA (11:37)
[2024-06-09] MEDS: CYCLOBENZAPRINE 10 MG TAB PO STA (11:46)
[2024-06-09] MEDS ORDERED: HYDROmorphone 1 MG/ML 1 ML SYRINGE IVP PRN (12:14)
[2024-06-09] MEDS ORDERED: ONDANSETRON 4 MG/2 ML VIAL IVP PRN (12:14)
[2024-06-09] MEDS ORDERED: oxyCODONE-APAP 5-325MG 1 EACH TAB PO PRN (12:16)
[2024-06-09] MEDS ORDERED: IBUPROFEN 800 MG TAB PO PRN (12:17)
[2024-06-09] MEDS: KETOROLAC 15 MG/ML 1 ML VIAL IVP SCH (12:19)
[2024-06-09] MEDS: DEXAMETHASONE SOD PHOSPHATE 10 MG/ML 1 ML VIAL IV STA (18:08)
[2024-06-09] MEDS: GABAPENTIN 300 MG CAP PO SCH (18:27)
[2024-06-09] MEDS: 0.9% NACL WITH KCL 20 MEQ/L 1,000 ML IV SCH (18:27)
[2024-06-09] MEDS: traZODone HCL 100 MG TAB PO SCH (20:15)
[2024-06-09] MEDS: ATORVASTATIN 80 MG TAB PO SCH (20:15)
[2024-06-09] MEDS: CYCLOBENZAPRINE 5 MG TAB PO PRN (20:17)
[2024-06-10] MEDS: BACLOFEN 10 MG TAB PO PRN (00:32)
[2024-06-10] MEDS: CHOLECALCIFEROL 125 MCG (5000 IU) TABLET PO SCH (08:24)
[2024-06-10] MEDS: polyethylene glycoL 3350 17 GM POWD.PACK PO SCH (08:25)
[2024-06-10] MEDS: amLODIPine 5 MG TAB PO SCH (08:25)
[2024-06-10 08:37] LABS: Basophils # (A) 0.01 X 10*3/uL (0.00-0.10); Basophils % (A) 0.1 %; Eosinophils # (A) 0.02 X 10*3/uL (0.04-0.35); Eosinophils % (A) 0.2 %; HCT 34.3 % (39.6-50.0); HGB 11.3 g/dL (13.0-17.0); Lymphocytes # (A) 1.67 X 10*3/uL (0.90-5.00); Lymphocytes % (A) 20.4 %; MCH 32.1 pg (27.0-32.0); MCHC 32.9 g/dL (32.0-37.0); MCV 97.4 FL (80.0-97.0); Mean Platelet Volume 11.5 FL (9.5-12.2); Monocytes # (A) 0.69 X 10*3/uL (0.20-1.00); Monocytes % (A) 8.4 %; NRBC Per 100 WBC 0 X 10*3/uL (0.00-0.01); Neutrophils # (A) 5.77 X 10*3/uL (1.80-7.70); Neutrophils % (A) 70.5 %; Platelet Count 151 X 10*3/uL (140-440); RBC 3.52 X 10*6/uL (4.40-5.60); RDW 13.9 % (11.5-14.5); WBC 8.19 X 10*3/uL (4.50-10.00)
[2024-06-10 08:46] LABS: BUN/Creat Ratio 18.43 Ratio (12.00-20.00); Blood Urea Nitrogen 12.9 mg/dL (9.0-27.0); Calcium 8.6 mg/dL (8.7-10.3); Carbon Dioxide 27.8 mmol/L (21.6-31.8); Chloride 100 mmol/L (96-109); Glucose 105 mg/dL (70-110); Potassium 3.9 mmol/L (3.5-5.5); Sodium 136 mmol/L (135-145)
--- NOTE | 2024-06-10 09:54 | P.PN ---
Subjective Progress Note Date: 06/10/24 Principal diagnosis: 1. L3-S1 adjacent segment disease with stenosis 2. L3-L4, L4-L5 foraminal stenosis 3. L2-L3 paracentral disc herniation, left 4. Bilateral lower extremity radiculopathy 5. Left lower extremity weakness 6. Left sacroiliitis 7. h/o lumbar fusion Patient seen and examined this morning patient is resting comfortably in bed. He does report that he has been transferring short distances with his walker and returning back to bed independently. Patient does describe left anterior thigh pain and numbness when standing, this was present prior to procedure. Patient does report that his pain overall is managed by current regimen. Surgical incision to the lumbar spine, dressing is clean dry and intact. Discussed with patient that physical therapy will begin to work with him today, we are anticipating discharge this afternoon. No acute concerns. Objective - Vital Signs Vital signs: Vital Signs Temp 99.0 F 06/10/24 01:10 Pulse 71 06/10/24 01:10 Resp 17 06/10/24 01:10 BP 95/54 06/10/24 01:10 Pulse Ox 91 L 06/10/24 01:10 FiO2 Intake & Output 06/09/24 06/10/24 06/10/24 18:59 06:59 18:59 Intake Total 1551.5 Output Total 60 Balance 1491.5 Weight 98.4 kg Intake: IV 1551.5 Output: Estimated Blood Loss 60 Other: # Voids 0 - Exam Inspection: Surgical incision to the lumbar spine x 2, dressings are clean dry and intact. Sensation: Sensation is equal, symmetric, bilaterally intact throughout the upper and right lower extremity. Patient does report numbness to the left anterior thigh. Palpation: Mild tenderness around lumbar incision sites. Range of motion: Patient does have full range of motion bilateral upper and lower extremities on exam Motor: 5/5 in all major motor groups in the bilateral upper and right lower extremities, 4/5 in left lower extremity Special tests: Negative Homans bilaterally. Negative Samantha bilaterally. Negative clonus bilaterally. Neurovascular: Radial pulse intact, 2+ bilaterally. Cap refill under 3 seconds in digits upper extremities. - Labs CBC & Chem 7: 06/10/24 03:01 06/10/24 03:01 Assessment and Plan Assessment: Postop day 1: Left minimally invasive laminoforaminotomy with removal of stimulator Plan: -Appreciate access consultant and team management. -Activity: Ambulate QID, OOB all meals, up and about, limit lifting bending twisting to less than 5 lbs. Use walker or cane if needed for stability. -Daily PT/OT, increase ambulation strength and balance. -Pain control: Adequate at this time -Meds: reviewed -GI ppx: senna -DVT PPX: OK to restart Heparin tonight -Hygiene: Maintain dressing clean and dry. Meticulous cleaning after BMs away f rom the incision site -Encourage IS 10x/hr -Dispo: Anticipate discharge home this afternoon. *I reviewed and discussed this case with my attending Dr. Coyne, whom has reviewed this chart and films and is in agreement with assessment and plan of care as outlined above. I have personally seen and examined the patient, performed the documentation and the assessment and plan as written. Number of minutes spent on the visit: 20m.
[2024-06-10] MEDS: diazePAM 5 MG TAB PO PRN (11:53)
[2024-06-10] MEDS: LISINOPRIL-HCTZ 20-25 MG 1 EACH TAB PO SCH (11:54)
[2024-06-10 13:24] VITALS: BP 97/50; PULSE 77; RESP 18; TEMP 98.2
--- NOTE | 2024-06-10 18:22 | FL ---
EXAMINATION TYPE: FL guidance operating room, XR lumbar spine 2 or 3V DATE OF EXAM: 06/09/2024 9:00 AM COMPARISON: Pre Operative Images if available both CT/MRI or plain film CLINICAL INDICATION: Male, 69 years old with history of L2-L3 Laminoforaminotomy; TECHNIQUE: FL guidance operating room, XR lumbar spine 2 or 3V, multiple fluoroscopic images provided for procedure. Total fluoroscopy time: 8 seconds Total submitted images to PACS: 5 DAP: 1.3664 mGym2 Gycm2 uGym2 cGycm2 or equivalent. FINDINGS: Fluoroscopic images during internal fixation/arthroplasty demonstrate fixation hardware in appropriat e position. Hardware appears intact. No immediate complication identified. IMPRESSION: 1. No evidence for intraoperative complication. 2. Please see the operative/procedural note for further details. [facility], , 06/10/2024 6:19 PM
== END 2024-06-10 16:00 | disposition home or self-care (01) ==
LOC: OR 06:12 → 4SSUR 09:18 → OR 06-10 16:00
PROVIDERS: ATTEND Orthopaedic Surgery
DX: M51.26 Other intervertebral disc displacement, lumbar region
CPT/HCPCS: 72100; 80048; 85025

== ENCOUNTER → 2024-09-11 | Outpatient (CLI) | payer MEDICARE | END | disposition home or self-care (01) | LOC: LABPAT 13:39 | PROVIDERS: ATTEND Orthopaedic Surgery | DX: Z22.322 Carrier or suspected carrier of Methicillin resistant Staphylococcus aureus (principal); T85.193A Other mechanical complication of implanted electronic neurostimulator, generator, initial encounter | CPT/HCPCS: 36415; 86850; 86900; 86901; 87070 ==

== ENCOUNTER 2024-09-16 06:22 | Day surgery (SDC) | payer MEDICARE ==
[~2024-09-16 06:22] MED LIST changes: -ACETAMINOPHEN TAB 500 MG TAB PO PRN; +GABAPENTIN 300 MG CAP PO PRN; +ONDANSETRON 4 MG/2 ML VIAL IVP PRN
[2024-09-16] MEDS ORDERED: LIDOCAINE 1% (10MG/ML) FOR IV START INTRADERMA PRN (06:25)
[2024-09-16] MEDS ORDERED: droPERidol 5 MG/2 ML VIAL IVP ONE (06:25)
[2024-09-16] MEDS ORDERED: LACTATED RINGERS 1,000 ML IV SCH (06:25)
--- NOTE | 2024-09-16 06:44 | P.HPOR ---
"History of Present Illness H&P Date: 09/16/24 Title: POSTOPERATIVE CHECK DOTTIE [facility] [address] [place] [address]| DO JOSE E FIELDS, MSN, JAVA DESIGNER-C CLINICAL SUMMARY: Mr. Perdomo presents for a 2-month postoperative follow-up after L2-3 laminoforaminotomy performed on 06/09/24. The patient reports 10% low back pain and 90% left leg pain with associated muscle spasms and sleep disturbances. He has a non-functional intrathecal pain pump that has been shut off, and he has c ompleted detoxification. Physical examination reveals appropriate surgical site healing, full range of motion, and intact neurological status. The patient ambulates independently without assistive devices. PLANNED PROCEDURE: Outpatient surgical removal of intrathecal pain pump due to non-functionality and hardware irritation. Removal is indicated to allow for unrestricted future MRI imaging and eliminate potential complications from retained non-functional hardware. The patient understands the risks and benefits of the procedure and has provided informed consent. The procedure will be performed on an outpatient basis with standard post-operative monitoring. -------- CHEIF COMPLAINT: (cc)Status post L2-3 laminoforaminotomy DOI: NA DOS: 06/09/24 PO (wk/yr) 2 months VAS: 8 HISTORY: Pt presents today for postoperative follow up from their L2-3 laminoforaminotomy. Patient has a pain pump implant that he would like to discuss removing. He states he has been detoxing for the past few weeks since his pain pump has been shut off. Patient reports 10% low back pain and 90% left leg pain. He notes muscle spasms in the leg. Patient is having night time sleep disturbances. He is not currently taking any pain medications. He ambulates independently. Otherwise patient is very pleased with their progress since the time of their procedure and denies any f/c/sob/cp, perineal numbness and tingling, bowel or bladder incontinence/retention. The patients' past social, medical, family, surgical history, as well as review of systems, have been reviewed. Please refer to the Neurosurgery History and Physical form that has been scanned in to our electronic medical record system. 16 points review of systems completed and as stated in HPI, all other systems reviewed are negative. PHYSICAL EXAMINATION: On examination today, the patient is alert and oriented times three, in no acute distress, appearing well nourished and well hydrated with overall alignment well maintained. Functionally, the patient demonstrates independent yxt-uj-ssrim transition in less than 5 seconds and ambulates without assistive devices. The surgical incision is healing appropriately without signs of infection, and the dressing is clean, dry, and intact. There is no erythema, edema, or ecchymosis noted. Minor tenderness to palpation is present around the incision site. Musculoskeletal examination reveals full range of motion in all major joints without restriction or pain, with 5/5 strength in all major muscle groups of bilateral upper and lower extremities. Neurologically, sensation is intact to light touch throughout C3-T1 and L2-S1 dermatomes, with 2/4 reflexes in bilateral upper and lower extremities. Yanez's, clonus, Babinski, and Darshan's signs are all negative, with no tensioning signs present. Cranial nerves II-XII are grossly intact. Vascular examination demonstrates 2/4 distal pulses in all four extremities without edema, and compartments are soft and compressible. The abdomen is soft and non-tender to palpation, with normal, non-labored respirations noted. IMAGING: Post operative images taken today in office are reviewed with pt. AP and Lateral of lumbar spine demonstrate hardware in satisfactory position with no evidence of any migration, fracture, failure or complicating process. ASSESSMENT: 1. Status post L2-3 laminoforaminotomy 2. Nonfunctional pain pump wit irritable hardware PLAN: Surgical recommendation: Pain pump removal Imaging: future MRI after pain pump removal Risks and benefits were discussed of the pain pump removal including, but not l imited to, the risk of bleeding infection , damage to tissues, CSF leak, dural headache, continued and worsening pain, need for re-operation, risks of anesthesia up to and including . He was willing to assume these risks and all the risks of surgery. Questions were invited and answered. Pt elected to proceed with scheduling removal of his pain pump. Medical Necessity: Given the patient's persistent left leg pain (90%) with associated muscle spasms and sleep disturbances following L2-3 laminoforaminotomy, combined with the presence of a non-functional pain pump causing hardware irritation, surgical removal of the pain pump is deemed medically necessary. The patient has already undergone detoxification with the pump being shut off, and conservative measures have not provided adequate relief. The presence of irritable hardware is impacting the patient's quality of life and potentially interfering with their post-operative recovery from the recent spine surgery. Removal of the non- functional pain pump would eliminate the source of hardware irritation, reduce the risk of complications associated with retained non-functional hardware, and optimize the patient's recovery trajectory. Plan for his current post op period as follows: Activity: -Continue to progress activity as tolerated. -Limit BLTPP to less than 20 lbs -Ambulate daily, aim for 1-2 sessions per hour of ambulation to start. Advance as able. -Use cane, walker etc. as needed for safety. Do not fall. -Do not drive until safe to do so (usually 6-8 weeks post op) and off all sedative and narcotic medications. ## Therapies: -Ice for pain and swelling control. -Follow balanced diet of protein, carbs and fats which are essential for healing. -Supplement with Vit D, Vit C and Calcium as well as multivitiam for healing. ## Incision care: -Maintain incision clean and dry. Change dressing PRN -May shower/wash over incision, do not submerge until after 6 weeks post op. -No lotions, creams, savs etc. on incision until told to by surgeon Medications: -Take medications as directed -Do not drive on sedative or narcotic medications -You should have resumed your normal home medications. If you have questions contact your PCP for help. ## Brace: -Wear brace when up and about as directed. Do not wear in shower or to sleep. -Take frequent breaks from brace to allow incision to breathe and to remove pres sure from area ## PPX: -Cont bowel regiment as needed for any constipation. Recommend also a High fiber diet. -Early and frequent ambulation. Stand and move 1-2x at least per hour to prevent DVT. -Compression stockings can be worn during the day if you are less active. Do not wear at night. FOLLOW UP: 4 WEEKS OR PRE OP NEXT VISIT: (REVIEW XRAYS, RECHECK ETC) PATIENT EDUCATION: Medications Reviewed: YES In our visit today Mr. Perdomo and I have had a chance to go over my understanding of the patient's current condition, the natural course history without intervention and various interventional options. Questions were invited and answered, and the patient wishes to proceed as outlined above. I will be sure to keep you updated after Mr. Perdomo returns here for further follow-up. Thank you again for your referral. Please do not hesitate to contact me if you have any further questions. Signed and authenticated by: Tristan Piña [facility] [address], [address] [place] [address] This message is confidential, intended only for the named recipient(s) and may contain information that is privileged or exempt from disclosure under applicable law. If you are not the intended recipient(s), you are notified that the dissemination, distribution or copying of this information is strictly prohibited. If you received this message in error, please notify the sender then delete this message. #Orders: Lumbar 2v xray RISK REVIEW AND SURGICAL RATIONALE FOR PAIN PUMP REMOVAL SURGICAL RATIONALE: The patient presents with a non-functional intrathecal pain pump that is causing hardware irritation and discomfort. The device is no longer serving its therapeutic purpose as it has been shut off, and the patient has already undergone detoxification. The presence of this non-functional hardware limits the patient's ability to undergo future necessary MRI imaging. Additionally, retained non-functional hardware poses potential risks for infection, tissue reaction, and continued irritation. Removal would eliminate these risks and allow for unrestricted future imaging studies. RISKS OF SURGERY INCLUDE BUT ARE NOT LIMITED TO: - Infection at the surgical site or along the pump/catheter tract - Bleeding or hematoma formation - CSF leak from previous catheter insertion site - Post-dural puncture headache - Nerve injury or damage to surrounding tissues - Wound healing complications - Chronic pain at the surgical site - Risks associated with anesthesia - Need for additional surgical intervention - Incomplete removal of catheter components BENEFIT OF SURGERY: The primary benefits include elimination of hardware irritation, ability to undergo unrestricted MRI imaging in the future, and removal of non-functional medical reviewer that serves no therapeutic purpose. This will optimize the patient's recovery from their recent spine surgery and improve their overall quality of life. The patient demonstrates understanding of these risks and benefits and wishes to proceed with surgical removal of the pain pump. All questions have been addresse d and informed consent has been obtained. # SIGNED BY Tristan Coyne (GOO) 08/15/2024 07:35A Past Medical History Past Medical History: Hyperlipidemia, Hypertension, Sleep Apnea/CPAP/BIPAP Additional Past Medical History / Comment(s): CPAP MACHINE, TINNITUS; spasms since January 2024, pain/numbness down left leg History of Any Multi-Drug Resistant Organisms: None Reported Past Surgical History: Back Surgery, Orthopedic Surgery, Tonsillectomy Additional Past Surgical History / Comment(s): RIGHT AND LEFT SHOULDER SURGERY, STIMULATOR IMPLANTED IN BACK, L5-S1 locked SI joints, morphine pump- currently off, hardware in back from back surgeries Past Anesthesia/Blood Transfusion Reactions: No Reported Reaction Additional Past Anesthesia/Blood Transfusion Reaction / Comment(s): no blood transfusion Smoking Status: Former smoker - Past Family History Mother Family Medical History: No Reported History Father Family Medical History: Diabetes Mellitus Medications and Allergies Home Medications Medication Instructions Recorded Confirmed Type Lisinopril-Hctz 20-25 mg 1 tab PO DAILY 03/12/17 09/12/24 History [Zestoretic 20-25] amLODIPine [Norvasc] 5 mg PO DAILY 03/12/17 09/12/24 History traZODone HCL [Desyrel] 100 mg PO HS 06/13/23 09/12/24 History Atorvastatin Calcium [Lipitor] 80 mg PO DAILY 01/10/24 09/12/24 History Pregabalin [Lyrica] 150 mg PO BID 01/10/24 09/12/24 History Cholecalciferol (Vitamin D3) 50 mcg PO DAILY 09/12/24 09/12/24 History [Vitamin D3 (50 Mcg = 2000 Iu)] Magnesium Oxide [Magnesium] 500 mg PO DAILY 09/12/24 09/12/24 History traMADol HCL 50 mg PO BID PRN 09/12/24 09/12/24 History Allergies Allergy/AdvReac Type Severity Reaction Status Date / Time No Known Allergies Allergy Verified 09/16/24 06:42 Physical Examination Osteopathic Statement: *. No significant issues noted on an osteopathic structural exam other than those noted in the History and Physical/Consult."
[2024-09-16] MEDS: IV FLUID CONTINUATION 1,000 ML IV ONE (06:59)
[2024-09-16] MEDS ORDERED: HYDROmorphone 0.5 MG/0.5 ML SYRINGE IVP PRN (07:00)
[2024-09-16] MEDS: ACETAMINOPHEN TAB 500 MG TAB PO PRN (07:03)
[2024-09-16] MEDS: ONDANSETRON 4 MG/2 ML VIAL IVP ONE (07:04)
[2024-09-16] MEDS: DEXAMETHASONE SOD PHOSPHATE 4 MG/ML 1 ML VIAL IV ONE (07:04)
[2024-09-16] MEDS ORDERED: fentaNYL (PF) 50 MCG/ML 2 ML AMP ONE (07:19)
[2024-09-16] MEDS ORDERED: PROPOFOL 10 MG/ML 20 ML VIAL IV ONE (07:19)
[2024-09-16] MEDS ORDERED: HYDROmorphone (PF) 1 MG/ML ONE (07:19)
[2024-09-16] MEDS ORDERED: LIDOCAINE 1% INJ 10MG/ML (20 ML MDV) ONE (07:19)
[2024-09-16] MEDS ORDERED: MIDAZOLAM 2 MG/2 ML VIAL ONE (07:19)
[2024-09-16] MEDS ORDERED: PHENYLEPHRINE-0.9% NACL SYG 1,000 MCG/10 ML SYRINGE ONE (07:19)
[2024-09-16] MEDS ORDERED: ePHEDrine 50 MG/ML 1 ML VIAL ONE (07:19)
[2024-09-16] MEDS ORDERED: WATER FOR INJECTION, STERILE 10 ML VIAL IV ONE (07:19)
[2024-09-16] MEDS: LIDOCAINE 2%-EPI 1:100,000 20 ML VIAL SQ ONE (07:43)
[2024-09-16] MEDS: BUPIVACAINE (PF) 0.25% 30 ML VIAL SQ ONE ×2 (07:44→08:07)
[2024-09-16] MEDS: LACTATED RINGERS 1,000 ML IV ONE (08:01)
--- NOTE | 2024-09-16 08:11 | P.OP ---
Date of Procedure: 09/16/24 Anesthesia: EDD Surgeon: Tristan Coyne Horticulture Supervisor #1: Ellen Rowe (was present and assisted with all aspects of the case from position to dressing placement) Estimated Blood Loss (ml): 5 IV fluids (ml): 1,000 Urine output (ml): 0 Pathology: none sent Condition: stable Disposition: PACU Indications for Procedure: Mr. Perdomo presents for a 2-month postoperative follow-up after L2-3 laminoforaminotomy performed on 06/09/24. The patient reports 10% low back pain and 90% left leg pain with associated muscle spasms and sleep disturbances. He has a non-functional intrathecal pain pump that has been shut off, and he has completed detoxification. Physical examination reveals appropriate surgical site healing, full range of motion, and intact neurological status. The patient ambulates independently without assistive devices. PLANNED PROCEDURE: Outpatient surgical removal of intrathecal pain pump due to non-functionality and hardware irritation. Removal is indicated to allow for unrestricted future MRI imaging and eliminate potential complications from retained non-functional hardware. The patient understands the risks and benefits of the procedure and has provided informed consent. The procedure will be performed on an outpatient basis with standard post-operative monitoring. Description of Procedure: ## PROCEDURE Removal of Morphine Pain Pump from Left Lower Anterior Abdomen ## PREOPERATIVE DIAGNOSIS Irritable and non-functional Intrathecal Pain Pump, Left Lower Anterior Abdomen ## POSTOPERATIVE DIAGNOSIS Same as Preoperative ## ANESTHESIA General ## POSITION Patient was positioned supine on a flat Ronnie table with appropriate padding of all pressure points. ## PROCEDURE IN DETAIL After obtaining informed consent and verification of the surgical site, the patient was taken to the operating room and placed supine on the operating table. Following the induction of satisfactory general anesthesia, the surgical site was prepped and draped in the usual sterile fashion. The previous incision site over the left lower anterior abdomen was identified. A surgical incision was made through the existing scar. Dissection was carried down through the subcutaneous tissues. The pain pump was identified and carefully dissected free from the surrounding tissues. All connections were appropriately disconnected. The pump was removed without complication. The wound was thoroughly irrigated with normal saline. Hemostasis was achieved. The wound was closed in layers using standard technique. Sterile dressings were applied. PUMP: MEDTRONIC SYNCHROMED II SN: [id number] ## COMPLICATIONS None ## ESTIMATED BLOOD LOSS Minimal ## DISPOSITION Patient was transferred to the Post Anesthesia Care Unit in stable condition.
[2024-09-16 08:21] VITALS: RESP 16; TEMP 97.7
[2024-09-16 08:42] VITALS: PULSE 82
[2024-09-16 09:02] VITALS: BP 129/73
== END 2024-09-16 09:42 | disposition home or self-care (01) ==
LOC: OR 06:22
PROVIDERS: ATTEND Orthopaedic Surgery
DX: T85.192A Other mechanical complication of implanted electronic neurostimulator of spinal cord electrode (lead), initial encounter (principal); G47.30 Sleep apnea, unspecified; I10 Essential (primary) hypertension; M79.605 Pain in left leg; E78.5 Hyperlipidemia, unspecified; Z90.89 Acquired absence of other organs; Z87.891 Personal history of nicotine dependence; Z83.3 Family history of diabetes mellitus; Z79.02 Long term (current) use of antithrombotics/antiplatelets; Z79.899 Other long term (current) drug therapy
CPT/HCPCS: 62355; J2250; J1100; J0690; J2405; J2003; J3010; J1171; J2704; J2371; J0665

== ENCOUNTER → 2024-10-12 | Outpatient (CLI) | payer MEDICARE ==
--- NOTE | 2024-10-12 10:55 | MR ---
INDICATION: Patient age:Male; 69 years old; Reason for study: M54.50, G89.18; [facility]. COMPARISONS: Lumbar spine radiograph 06/09/2024, CT lumbar spine 02/29/2024, 10/22/2023, 08/18/2022, 01/19, MRI lumbar spine 03/22/2016. TECHNIQUE: Multi planar, multi sequence imaging was performed utilizing: T1-weighted, T2-weighted, a nd turbo inversion recovery imaging of the lumbar spine. The patient was not given contrast. FINDINGS: The lumbar vertebral bodies do have preserved heights and alignment. Postsurgical changes with right-sided pedicle screws and filemon and disc spacer involving L5-S1. There is a left sided reyna ctomy defect at this level. Hardware creates susceptibility artifact which limits evaluation. No abno rmal increased STIR signal identified. Multilevel disc desiccation is present. The conus medullaris and the distal spinal cord do appear unremarkable with regards to their signal intensity and morpholo gy. L1-L2: No significant disc pathology is identified. The spinal canal and neural foramen are patent. L2-L3: Left paracentral/subarticular zone disc protrusion with mild spinal canal stenosis. Bilateral facet arthropathy. Mild bilateral neural foraminal stenosis. L3-L4: Broad-based disc bulge with mild effacement of the anterior thecal sac. No significant centra l canal stenosis. Bilateral facet arthropathy. Mild bilateral neural foraminal stenosis. L4-L5: Broad-based disc bulge without significant central canal stenosis. Bilateral facet arthropathy . Mild bilateral facet arthropathy. Evaluation is limited due to streak artifact from hardware. L5-S1: Postoperative changes without significant central canal or neural foraminal stenosis identifie d. Evaluation is limited due to susceptibility artifact from hardware. Other significant findings: None. IMPRESSION: 1. Multilevel disc degeneration with associated osteoarthritic changes as described above. L2-L3 lef t paracentral/subarticular zone disc protrusion with mild spinal canal stenosis. 2. Postsurgical from right-sided fusion at L5-S1. This creates susceptibility artifact which limits evaluation. [facility], , 10/12/2024 10:52 AM
== END | disposition home or self-care (01) ==
LOC: RADMRIMAIN 09:43
PROVIDERS: ATTEND Orthopaedic Surgery
DX: M48.061 Spinal stenosis, lumbar region without neurogenic claudication (principal); M51.26 Other intervertebral disc displacement, lumbar region; M47.816 Spondylosis without myelopathy or radiculopathy, lumbar region
CPT/HCPCS: 72148

== ENCOUNTER → 2024-11-18 | Outpatient (CLI) | payer MEDICARE ==
[2024-11-18 11:10] LABS: Partial Thromboplastin Time 24.2 sec (22.0-30.0); Prothrombin Time 10.7 sec (10.0-12.5)
[2024-11-18 14:55] LABS: Basophils # (A) 0.02 X 10*3/uL (0.00-0.10); Basophils % (A) 0.5 %; Eosinophils # (A) 0.05 X 10*3/uL (0.04-0.35); Eosinophils % (A) 1.2 %; HCT 41.5 % (39.6-50.0); HGB 13.9 g/dL (13.0-17.0); Lymphocytes # (A) 1.59 X 10*3/uL (0.90-5.00); Lymphocytes % (A) 36.7 %; MCH 31.8 pg (27.0-32.0); MCHC 33.5 g/dL (32.0-37.0); Mean Platelet Volume 12.1 FL (9.5-12.2); Monocytes # (A) 0.37 X 10*3/uL (0.20-1.00); Monocytes % (A) 8.5 %; NRBC Per 100 WBC 0 X 10*3/uL (0.00-0.01); Neutrophils # (A) 2.29 X 10*3/uL (1.80-7.70); Neutrophils % (A) 52.9 %; Platelet Count 168 X 10*3/uL (140-440); RBC 4.37 X 10*6/uL (4.40-5.60); RDW 13.2 % (11.5-14.5); WBC 4.33 X 10*3/uL (4.50-10.00)
[2024-11-18 15:30] LABS: ALT 26 U/L (10-49); AST 21 U/L (14-35); Albumin 4.4 g/dL (3.8-4.9); Albumin/Globulin Ratio 2.59 Ratio (1.60-3.17); Alkaline Phosphatase 73 U/L (41-126); BUN/Creat Ratio 14.56 Ratio (12.00-20.00); Blood Urea Nitrogen 13.1 mg/dL (9.0-27.0); Calcium 9.1 mg/dL (8.7-10.3); Carbon Dioxide 24.6 mmol/L (21.6-31.8); Chloride 101 mmol/L (96-109); Globulin 1.7 g/dL (1.6-3.3); Glucose 93 mg/dL (70-110); Sodium 138 mmol/L (135-145); Total Bilirubin 0.5 mg/dL (0.3-1.2); Total Protein 6.1 g/dL (6.2-8.2)
== END | disposition home or self-care (01) ==
LOC: LABPAT 10:39
PROVIDERS: ATTEND Orthopaedic Surgery
DX: Z01.812 Encounter for preprocedural laboratory examination (principal); M48.061 Spinal stenosis, lumbar region without neurogenic claudication; Z22.322 Carrier or suspected carrier of Methicillin resistant Staphylococcus aureus
CPT/HCPCS: 80053; 82306; 85025; 85610; 85730; 86850; 86900; 86901; 87070

== ENCOUNTER 2024-11-25 12:05 | Inpatient (IN) | payer MEDICARE ==
--- NOTE | 2024-11-24 08:45 | P.HPOR ---
History of Present Illness H&P Date: 10/24/24 .D:Date: 10/24/24 : 01:14pm .T:Title: RECHECK H1 [facility] [address] [place] [id number]| PROVIDER: YUVAL STEPHENSON DO CLINICAL SUMMARY: Mr. Perdomo is a 69-year-old male who presents for follow-up evaluation of chronic lumbar pain and review of recent MRI results. Patient reports severe (10/10) sharp, throbbing low back pain with left lower extremity radiation, accompanied by intermittent muscle spasms. Conservative management including physical therapy, home exercise program, and multiple medications (Oxycodone, Pregabalin, Tylenol, and Naproxen) has failed to provide adequate relief. Recent imaging demonstrates L2-3 HNP with moderate to severe foraminal stenosis and vacuum disc phenomenon. Physical examination reveals left lower extremity motor weakness (4/5), positive straight leg raise, and ambulatory dysfunction requiring cane assistance. Given the progressive neurological deficits and failed conservative management, surgical intervention has been recommended in the form of a staged L2-3 lateral interbody fusion followed by posterolateral stabilized fusion. Patient has been counseled on surgical risks and benefits, and will proceed with PCP clearance prior to surgical scheduling. DEMOGRAPHICS: Age: 69 year Height: 5'10" Weight: 210 lbs BP:150/90 BMI: 30.17 kg/m2 Occupation: Retired CC: lumbar pain VAS: 10 HISTORY: Mr. Perdomo presents to the office today, 10/24/24, for a recheck of his low back pain and MRI results. Patient reports a sharp and throbbing pain that radiates down the left leg. He states walking is becoming more difficult and he is having muscle spasms intermittently throughout the day. Patient is unable to perform his activities of daily living due to his pain. Patient is having night time sleep disturbances related to his ongoing symptoms. He is currently taking Oxycodone, Pregabalin, Tylenol, and Naproxen without relief. Patient ambulates with a cane. * Patient denies any f/c/sob/cp, perineal numbness or tingling, bowel, or bladder incontinence/retention. * The patients past social, medical, family, surgical history, as well as review of systems, have been reviewed. Please refer to the History and Physical form that has been scanned into our electronic medical record system. * 16 points review of systems completed and as stated in HPI, all other systems reviewed are negative. PAST TREATMENTS: PAST IMAGING: -YES, xray and MRI - TRAUMA RELATED: -NO - WORK RELATED: -NO - PT IN LAST 6 MONTHS: -YES - PHYSICIAN DIRECTED HOME EXERCISE PROGRAM: -YES, no relief - ACTIVITY MODIFICAITON: -YES - MEDICATIONS: -YES, Oxycodone, Pregabalin, Tylenol, and Naproxen - ALTERNATIVE INTERVENTIONS (CHIROPRACTIC, ACUPUNCTURE, MASSAGE, RICE): -YES - BRACING: -NO - INJECTIONS (JACKI, TF, RFA): -NO - MEDICAL HISTORY: Past Medical History: REVIEWED STATED IN CHART Past Surgical History: REVIEWED STATED IN CHART Social History: REVIEWED STATED IN CHART SMOKING: Never smoker ETOH: None SUBSTANCES: None Family History: REVIEWED STATED IN CHART P1 Current Medications: Rx: amLODIPine 5 mg tablet Ref: 0 Instructions: take 1 tablet (5 mg) by oral route once daily Rx: atorvastatin 40 mg tablet Ref: 0 Instructions: take 1 tablet (40 mg) by oral route once daily Rx: ibuprofen 800 mg tablet Ref: 0 Instructions: take 1 tablet (800 mg) by oral route 3 times per day with food Rx: lisinopriL Ref: 0 Rx: pregabalin 100 mg capsule Ref: 0 Instructions: take 1 capsule (100 mg) by oral route 3 times per day Rx: Stimulator , Ref: 0 Rx: TylenoL Ref: 0 Rx: sennosides 8.6 mg-docusate sodium 50 mg tablet Ref: 0 Instructions: TAKE 1 TABLET BY MOUTH TWICE A DAY FOR CONSTIPATION Rx: oxyCODONE-acetaminophen 7.5 mg-325 mg tablet Ref: 0 Instructions: take 1 tablet by oral route every 6 hours as needed Rx: methocarbamoL 750 mg tablet Ref: 0 Instructions: TAKE 1 TABLET BY MOUTH THREE TIMES A DAY Rx: naproxen 500 mg tablet Ref: 0 Instructions: TAKE 1 TABLET BY MOUTH TWICE A DAY WITH FOOD Rx: gabapentin 300 mg capsule Ref: 0 Instructions: take 1 capsule (300 mg) by oral route 3 times per day Rx: Medrol (Bharat) 4 mg tablets in a dose pack Ref: 0 Instructions: take by oral route as directed per package instructions Rx: Percocet 10 mg-325 mg tablet Ref: 0 Instructions: take 1 tablet by oral route every 6 hours as needed P1 PHYSICAL EXAM: General: AOX3, NAD, Well hydrate, well nourished, in no acute distress HEENT: No lumps or masses Extremities: No color changes, no pooling INTEGUMENT: Appearance: Normal color and turgor Surgical Incisions: Healed Hairy Patches: ABSENT Dorsal Skin Dimples: Normal [employer] spots: ABSENT PALPATION: TTP Midline: NO Paracervical: NO Parathoracic: NO Paralumbar: YES SIJ TESTING (Amadeo's, FABER4, Compression, Distraction, Thigh Thrust, Hip Thrust): TESTED * POSITIVE FINDINGS: NEGATIVE FINDINGS: Amadeo's, FABER4, Compression, Distraction, Thigh Thrust, Hip Thrust POSTURAL BALANCE: Coronal: BALANCED Sagittal: BALANCED Shoulder height: LEVEL Pelvic Girdle: LEVEL ROM AND APPEARANCE: Neck: UNRESTRICTED Lumbar: RESTRICTED Shoulders: Symmetrical Hips: Symmetrical Knees: Symmetrical Hands: Symmetrical Feet: Symmetrical VASCULAR STATUS: PALPABLE PULSES B/L UE AND LE 2/4 RAD/ULNAR/DP/PT Edema: NONE NEUROLOGICAL EXAMINATION: Mental Status: Awake, alert, fully oriented with normal attention, concentration, and memory. Fluent appropriate speech. CRANIAL NERVES: I: Olfactory not assessed. II: Visual acuity normal, no visual field deficit noted with confrontation. III, IV: Normal pupillary reflexes & intact extraocular movements without nystagmus. V, : Intact symmetrical facial sensation. VII: Intact symmetrical facial motor movement: Hearing intact. IX, X: Intact gag, swallow, & normal voice. XI: Sternocleidomastoid, trapezius function intact. XII: Tongue midline with normal movements. TENSIONING: * L'HERMITTE'S SIG:NEG SPURLUNG'S SIGN:NEG UPPER EXTREMITY TENSIONING SIGNS: NEG CUBITAL TUNNEL COMPRESSION:NEG TINELS AT WRIST:NEG STRAIGH LEG RAISE:POS CONTRALATERAL STRAIGHT LEG RAISE: NEG MOTOR EXAM (0-5/5, NT) Muscle appearance: Symmetrical, without signs of atrophy or dystrophy UPPER EXTREMITY RIGHT LEFT Shoulder Abduction 5 5 Biceps 5 5 Triceps 5 5 Wrist Extension 5 5 Hand Intrinsics 5 5 Rn Postpartum 5 5 LOWER EXTREMITY RIGHT LEFT Hip Flexion 5 4 Knee Extension 5 4 Knee Flexion 5 4 Dorsiflexion 5 4 Plantarflexion 5 4 EHL 5 4 FHL 5 4 REFLEXES (0-4/2, NT): RIGHT LEFT Bicep 2 2 Brachioradialis 2 2 Triceps 2 2 Patellar 2 2 Achilles 2 2 PATHOLOGICAL REFLEXES: RIGHT LEFT FELIPE'S ABSENT ABSENT CLONUS ABSENT ABSENT BABINSKI ABSENT ABSENT RECTAL TONE: INTACT/NT SENSATION (0-4, NT): Sensation intact to LT and Pain * C5-T1 distribution BUE * L2-S2 distribution BLE *Exceptions below* DERMATOMAL DEFICIT/RADICULAR PATTERN: L2-3 LLE GAIT AND FUNCTIONAL EVALUATION: AMBULATORY AID CANE ROMBERG'S TEST INTACT HAND AND FINGER DEXTERITY INTACT YES DYSDIADOCHOKINESIA EXAM NEG B/L YES TOE/HEEL WALK INTACT WITH GOOD BALANCE NO SQUAT AND RISE W/O ASSISTANCE TO 60 DEG KNEE FLEXION NO SINGLE LEG STANCE NOT ABLE TRENDELENBURG NEG IMAGING: XRAY Date: 02/13/24 Location: [facility] Region: Lumbar Views: Multiview FINDINGS: Reviewed with pt. This demonstrates post operative changes at L4-S1 with older fusion construct in place. There is what appears to be attempted SI fusion on the left with older technique as well. There is poor fusion bone noted. There is ASD at L3-4 noted with retrolisthesis and disc height loss at this level as well. There is disc height loss at L2-3 noted as well as facet arthrosis at these levels as well. No acute fracture noted. LL is fairly well maintained at this time. Pseudoarthrosis suspected at the lower L4-S1 levels due to poor fusion construct noted. CT Myelogram Date: 02/29/24 Location: [facility] Region: Lumbar Contrast: Y FINDINGS: Images reviewed with pt. Post surgical changes noted L4-S1 again as noted above. L2-3 shows HNP with moderate central and b/l foraminal stenosis due to pressure on the thecal sac. There is L3-4 HNP with ASD and degeneration noted with retrolisthesis noted due to ASD and collapse. There is facet arthropathy L2-3 and L3-4. There is likely pseudoarthrosis of L4-S1. No fractures noted. No lesions noted. MRI Date: 10/12/24 Location: [facility] Region: LUMBAR Contrast: N IMAGES ARE REVIEWED WITH THE PATIENT IN OFFICE AND DEMONSTRATE THE FOLLOWING: FINDINGS: CONTINUED L2-3 HNP WITH FORAMINAL STENOSIS THAT IS MODERATE TO SEVERE. LAMINECTOMY DEFECT WHICH CREATES GOOD DECOMPRESSION POSTERIORLY, HOWEVER THERE IS STILL ALOT OF FORAMINAL STENOSIS DUE TO PROPGATION OF THE HERNIATION. nO FRACTURES NOTED. FLATTENED LL DUE TO THE COLLAPASE AND VACUUM DISC PHENOM AT THIS LEVEL. IMPRESSION: It was my pleasure to have seen and examined Yimi. I reviewed the patient's clinical syndrome, physical findings, and imaging studies during the appointment today. It is my impression that the patient has a diagnosis of. 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 We have discussed risks, benefits, potential outcomes and natural course as pertains top their issues. The patient understands and would like to proceed as follows below: SURGICAL RECOMMENDATION - Stage 1: L2-3 lateral interbody fusion Stage 2: L2-3 posterolateral stabilized fusion THERAPIES - -Cont. with home exercises and home PT exercises as able -Cont. with Heat/Ice as warranted -Cont. with supplementation Vit D, Vit C, Ca2+, High protein diet -OK for massage or other alternative treatment modalities as able. If it exacerbates your sx do not continue ACTIVITY -Recommend walking up to 30 min 2x daily on a flat easy surface with good support. -WORK STATUS: N/A MEDICATIONS -Rx: Percocet 10/325 #42, Gabapentin 300 TID #90, Medrol Dosepak -Take as directed -Cont. home medications as directed by your PCP. Check with your PCP for any medication interactions or issues if needed. IMAGING -N/A INJECTIONS -N/A Spine Surgery Risk Review Mr. Perdomo is presenting for evaluation of lumbar pain. It was my pleasure to have seen and examined Mr. Perdomo. In our visit today we have had a chance to go over subjective complaints, physical examination findings and treatments including the natural course history without intervention and various interventional options. The patients imaging demonstrates: XR, MRI AND CT REVIEWED AND DEMONSTRATE THE FOLLOWING: CONTINUED L2-3 HNP WITH FORAMINAL STENOSIS THAT IS MODERATE TO SEVERE. LAMINECTOMY DEFECT WHICH CREATES GOOD DECOMPRESSION POSTERIORLY, HOWEVER THERE IS STILL ALOT OF FORAMINAL STENOSIS DUE TO PROPGATION OF THE HERNIATION. nO FRACTURES NOTED. FLATTENED LL DUE TO THE COLLAPASE AND VACUUM DISC PHENOM AT THIS LEVEL. On physical exam, Mr. Perdomo demonstrates: Patient reports a sharp and throbbing pain that radiates down the left leg. He states walking is becoming more difficult and he is having muscle spasms intermittently throughout the day. Patient is unable to perform his activities of daily living due to his pain. Patient is having night time sleep disturbances related to his ongoing symptoms. He is currently taking Oxycodone, Pregabalin, Tylenol, and Naproxen without relief. Patient ambulates with a cane. I have explained to the patient that as their condition progresses it will cause further neurological deficits and eventual paralysis. Based on the patients imaging, physical exam, and the rapid progression and disabling nature of their symptoms, at this time I recommend surgery in the form of a: Stage 1: L2-3 lateral interbody fusion Stage 2: L2-3 posterolateral stabilized fusion. I discussed the risk and benefits of this procedure at length with [place] Leanne. The patient agreed to considered pursuing the procedure abovementioned. Prior to surgery, she should follow up with her PCP (Cardio, ID, IM etc) for clearance. Questions were invited and answered, and the patient wishes to proceed as outlined below. Currently, I am recommendin. Stage 1: L2-3 lateral interbody fusion Stage 2: L2-3 posterolateral stabilized fusion 2.Follow up with PCP for surgical clearance 3.Review of surgical risks and benefits as well as an educational packet on the proposed surgical procedure. Risks: All surgical procedures come with inherent risks, including those related to positioning, anesthesia, intraoperative findings, and postoperative complications. It is important to understand that surgery does not come with any guarantee of a successful outcome as complications and adverse events are always possible. The patient was given a handout in office today discussing the surgical procedure and risks associated with the intervention, both of which were discussed with the patient. These risks include but are not limited to the following: * Experiencing same, different or even worse symptoms in back, neck, arms, or legs compared to before surgery. Requiring further surgery or other forms of treatment presently or at some time in the future at same or other levels of the intended spine surgery. On an extreme but fortunately relatively rare basis severe complication such as blindness, stroke, heart attack, temporary and/or permanent nerve injury, paralysis, coma, or may occur, sometimes without known explanation. Surgical complications may include but are not limited to risk of infection, fluid accumulation in the surgical dissection site, including a seroma or hematoma, that requires additional surgery, wound drainage, bleeding, new numbness or weakness, vision changes/loss, spinal fluid leakage, non-healing and/or infected incision, headaches, difficulty or inability to swallow, hoarseness, hemopneumothorax, pneumothorax, impotence, retrograde ejaculation, vaginal dryness; injury to nerves, spinal cord, blood vessels, lymphatics or other vital organs (i.e., bowel injury, injury to the great vessels); heterotopic bone formation; complications related to the hardware such as screws, rods, cages including misplaced hardware, device failure, instrumentation at the wrong spine level, hardware fracture/breakage, or hardware loosening; vertebral failure of the spinal column above or below the newly placed hardware; retained surgical instrumentations or devices and the need for further surgery. * Medical risks of the planned spine surgery include but are not limited to generalized Infections to the whole body or local areas outside of the surgical site (sepsis), heart attack, bleeding, anaphylaxis, meningitis, seizure, epilepsy, hearing loss, burn hutchinson, laceration of the head or other areas of the body, bruising, hypersensitivity of the skin, bladder over distension; allergic reaction; shoulder injury related to positioning; fat, blood and air clots to other areas of the body like heart, lungs, brain; failure of internal organs such as lungs, kidneys, liver and excessive bleeding. If blood transfusions are necessary, note that transfusions may cause intolerance reactions such as anaphylaxis or other complex reactions. Despite best efforts, the results of spine surgery might not heal in terms of bone, soft tissues such as skin, fascia, ligaments, and joints. Additionally, in order to achieve best possible results, spine surgery may be carried out beyond the initially planned levels and involve decompression, fusion including insertion of hardware at levels other than the original intended area of surgical interest change some portions of the procedure in order to ensure the best possible outcomes. With spine surgery and spinal fusion, there are different off label uses of instrumentation (devices, implants and hardware) as well as biological substances (bone morphogenic proteins, demineralized bone matrix) as well as using extra bone from allograft sources (i.e. cadaver bone) or autograft (iliac crest bone, ribs, or the spine itself). The patient has been given information about these practices and their inherent risks and benefits. [facility] is an educational center that serves as a training facility for neurosurgical and orthopedic LEAD [employer] and Nursing students. Physician assistants are medically trained surgical providers who function in the outpatient, inpatient, and operating room setting under the direct supervision of the attending surgeon. [facility] has multiple operating rooms with single and overlapping rooms running daily. They currently function under the required guidelines as produced by the [facility] [employer] [facility] with regards to the overlapping rooms and will continue to comply with changes to this policy as they occur. The requirements include and are complied with as follows: (1) the critical portions of the overlapping rooms will not occur at the same time, (2) the attending physician will be physically present during the critical portions of the procedure and immediately available during the entire case, and (3) a back-up attending is designated should the primary attending not be immediately available. The patient has had a chance to review all the listed information, has been given print outs detailing this information, and has had all his/her questions answered to their satisfaction. It was my pleasure to have seen and examined Mr. Perdomo. In our visit today we have had a chance to go over my understanding of our patient's current condition, the natural course history without intervention and various interventional options. Questions were invited and answered, and the patient wishes to proceed as outlined above. I have seen and examined the patient for 25 minutes and we have spent more than 50% of the time in repeat and detailed counseling about the patient's condition, its natural course history with out and as much as can be predicted with surgery and re-review of various surgical treatment options. In conclusion, Mr. Perdomo requested we proceed with the above suggested surgery and are willing to accept risks and limitations of the suggested surgery as nature of the disease process and our best attempts at treatment for the condition. MEDICAL NECESSITY: Mr. Perdomo presents with severe (06/19) lumbar pain radiating to the left lower extremity, demonstrating progressive neurological deficit with documented motor weakness (4/5) and positive straight leg raise testing. Conservative management including physical therapy, home exercise programs, and multiple pain medications (Oxycodone, Pregabalin, Tylenol, and Naproxen) has failed to provide adequate relief. Advanced imaging demonstrates significant pathology at L2-3 with herniated nucleus pulposus, moderate to severe foraminal stenosis, and vacuum disc phenomenon. The patient's condition significantly impacts his activities of daily living, causing sleep disturbances and requiring ambulatory assistance with a cane. Without surgical intervention, there is a high risk of further neurological deterioration and potential permanent nerve damage. SURGICAL RATIONALE: The proposed staged surgical approach (Stage 1: L2-3 lateral interbody fusion, Stage 2: L2-3 posterolateral stabilized fusion) is indicated based on several f actors: 1) The presence of significant structural pathology at L2-3 with both neural compression and disc degeneration, 2) Failed conservative management despite multiple therapeutic approaches, 3) Progressive neurological deficit with documented motor weakness, and 4) Severe impact on patient's quality of life and functional status. The lateral approach allows for optimal decompression of the neural elements while providing anterior column support, while the posterolateral fusion ensures circumferential stabilization. This comprehensive approach addresses both the mechanical and neurological components of the patient's condition, offering the best opportunity for symptomatic relief and prevention of further deterioration. FOLLOW UP: PRE-OP PLAN AT NEXT VISIT: RECHECK PATIENT EDUCATION: Medications Reviewed: YES In our visit today Mr. Perdomo and I have had a chance to go over my understanding of the patient's current condition, the natural course history without intervention and various interventional options. Questions were invited and answered, and the patient wishes to proceed as outlined above. I will be sure to keep you updated after Mr. Perdomo returns here for further follow-up. Thank you again for your referral. Please do not hesitate to contact me if you have any further questions. Signed and authenticated by: Yuval Piña [facility] [address] [place] [id number] . This message is confidential, intended only for the named recipient(s) and may contain information that is privileged or exempt from disclosure under applicable law. If you are not the intended recipient(s), you are notified that the dissemination, distribution or copying of this information is prohibited. If you received this message in error, please notify the sender then delete this message. Rx: Percocet 10 mg-325 mg tablet, 42, Ref: 0, take 1 tablet by oral route every 6 hours as needed Rx: Medrol (Bharat) 4 mg tablets in a dose pack, 1, Ref: 0, take by oral route as directed per package instructions Rx: gabapentin 300 mg capsule, 90, Ref: 0, take 1 capsule (300 mg) by oral route 3 times per day # SIGNED BY Yuval Stephenson (PAZ)11/02/2024 03:45PM Past Medical History Past Medical History: Hearing Disorder / Deafness, Hyperlipidemia, Hypertension, Osteoarthritis (OA), Sleep Apnea/CPAP/BIPAP Additional Past Medical History / Comment(s): uses CPAP MACHINE, TINNITUS History of Any Multi-Drug Resistant Organisms: None Reported Past Surgical History: Back Surgery, Orthopedic Surgery, Tonsillectomy Additional Past Surgical History / Comment(s): [facility] SHOULDER SURGERY, STIMULATOR IMPLANTED IN BACK- now removed, L5 S1 locked SI joints, morphine pump- now removed, hardware in back from back surgeries, EGD, colonoscopy Past Anesthesia/Blood Transfusion Reactions: No Reported Reaction Additional Past Anesthesia/Blood Transfusion Reaction / Comment(s): no blood transfusion Smoking Status: Former smoker - Past Family History Mother Family Medical History: No Reported History Father Family Medical History: Diabetes Mellitus Medications and Allergies Home Medications Medication Instructions Recorded Confirmed Type Lisinopril-Hctz 20-25 mg 1 tab PO DAILY 03/12/17 11/20/24 History [Zestoretic 20-25] amLODIPine [Norvasc] 5 mg PO DAILY 03/12/17 11/20/24 History traZODone HCL [Desyrel] 100 mg PO HS 06/13/23 11/20/24 History Atorvastatin Calcium [Lipitor] 80 mg PO DAILY 01/10/24 11/20/24 History Pregabalin [Lyrica] 150 mg PO BID 01/10/24 11/20/24 History Cholecalciferol (Vitamin D3) 50 mcg PO DAILY 09/12/24 11/20/24 History [Vitamin D3 (50 Mcg = 2000 Iu)] Magnesium Oxide [Magnesium] 500 mg PO DAILY 09/12/24 11/20/24 History traMADol HCL 50 mg PO BID PRN 09/12/24 11/20/24 History Naproxen 500 mg PO DAILY #14 tab 09/16/24 11/20/24 Rx oxyCODONE-APAP 10-325MG [Percocet 1 tab PO Q4HR PRN #28 tab 09/16/24 11/20/24 Rx 10-325 mg] Allergies Allergy/AdvReac Type Severity Reaction Status Date / Time No Known Allergies Allergy Verified 11/20/24 15:59 Physical Examination Osteopathic Statement: *. No significant issues noted on an osteopathic structural exam other than those noted in the History and Physical/Consult.
[~2024-11-25 12:05] MED LIST changes: -GABAPENTIN 300 MG CAP PO PRN; +MIDAZOLAM 2 MG/2 ML VIAL IV PRN; -ONDANSETRON 4 MG/2 ML VIAL IVP PRN
[2024-11-25] MEDS: LIDOCAINE 1% (10MG/ML) FOR IV START INTRADERMA STA (12:55)
[2024-11-25] MEDS: IV FLUID CONTINUATION 1,000 ML IV ONE ×2 (12:55→13:00)
[2024-11-25] MEDS: LACTATED RINGERS 1,000 ML IV SCH (12:55)
[2024-11-25] MEDS: ACETAMINOPHEN TAB 500 MG TAB PO PRN (12:59)
[2024-11-25] MEDS: GABAPENTIN 300 MG CAP PO PRN (12:59)
[2024-11-25] MEDS: ONDANSETRON 4 MG/2 ML VIAL IVP PRN (13:15)
[2024-11-25] MEDS: fentaNYL (PF) 50 MCG/ML 2 ML AMP IVP PRN (13:29)
[2024-11-25] MEDS ORDERED: MIDAZOLAM 2 MG/2 ML VIAL ONE (15:21)
[2024-11-25] MEDS ORDERED: fentaNYL (PF) 50 MCG/ML 2 ML AMP ONE (15:21)
[2024-11-25] MEDS ORDERED: LIDOCAINE 1% INJ 10MG/ML (20 ML MDV) ONE (15:21)
[2024-11-25] MEDS ORDERED: ePHEDrine 50 MG/ML 1 ML VIAL ONE (15:21)
[2024-11-25] MEDS ORDERED: PROPOFOL 10 MG/ML 20 ML VIAL IV ONE (15:21)
[2024-11-25] MEDS ORDERED: SUCCINYLCHOLINE CHLORIDE 200 MG/10 ML VIAL IV ONE (15:21)
[2024-11-25] MEDS ORDERED: KETAMINE HCL IN 0.9 % NACL 50 MG/5 ML SYRINGE ONE (15:21)
[2024-11-25] MEDS ORDERED: PHENYLEPHRINE 10 MG/ML VIAL ONE (15:21)
[2024-11-25] MEDS ORDERED: TRANEXAMIC 1,000 MG/100ML-NACL PREMIX BAG ONE (15:21)
[2024-11-25] MEDS: THROMBIN (BOVINE) 5,000 UNIT VIAL TOPICAL ONE (16:15)
[2024-11-25] MEDS: GENTAMICIN 80 MG in SODIUM CHLORIDE 0.9% IRRIGATIO 3,000 ML IRRIGATION ONE (16:26)
[2024-11-25] MEDS: ceFAZolin 3,000 MG in SODIUM CHLORIDE 0.9% IRRIGATIO 3,000 ML IRRIGATION ONE (16:26)
[2024-11-25] MEDS: LACTATED RINGERS 1,000 ML IV ONE ×2 (16:50→19:13)
[2024-11-25] MEDS: LIDOCAINE 2%-EPI 1:100,000 20 ML VIAL SQ ONE (19:02)
[2024-11-25] MEDS: BUPIVACAINE (PF) 0.5% 30 ML VIAL SQ ONE (19:03)
[2024-11-25] MEDS ORDERED: MAGNESIUM HYDROXIDE 2,400 MG/30 ML CUP PO PRN (19:23)
[2024-11-25] MEDS ORDERED: ONDANSETRON 4 MG/2 ML VIAL IVP PRN (19:23)
[2024-11-25] MEDS ORDERED: HYDROmorphone 1 MG/ML 1 ML SYRINGE IVP PRN (19:23)
[2024-11-25] MEDS ORDERED: MAG HYDROX/AL HYDROX/SIMETH 30 ML CUP PO PRN (19:23)
[2024-11-25] MEDS ORDERED: NA PHOS,M-B/NA PHOS,DI-BA 133 ML ENEMA RECTAL PRN (19:23)
[2024-11-25] MEDS ORDERED: HYDROmorphone 0.5 MG/0.5 ML SYRINGE IVP PRN (19:23)
[2024-11-25] MEDS ORDERED: bisacodyL 10 MG SUPP RECTAL PRN (19:23)
[2024-11-25] MEDS: HYDROmorphone 0.5 MG/0.5 ML SYRINGE IVP PRN (20:28)
--- NOTE | 2024-11-25 21:20 | FL ---
EXAMINATION TYPE: FL guidance operating room, XR lumbar spine 2 or 3V DATE OF EXAM: 11/25/2024 7:17 PM COMPARISON: Pre Operative Images if available both CT/MRI or plain film CLINICAL INDICATION: Male, 69 years old with history of TRANS LUMBAR INTERBODY FUSION; TECHNIQUE: FL guidance operating room, XR lumbar spine 2 or 3V, multiple fluoroscopic images provided for procedure. DAP: 1499.86 mGym2 Gycm2 uGym2 cGycm2 or equivalent. FINDINGS: Fluoroscopic images during internal fixation/arthroplasty demonstrate hardware in appropriate positio n. Hardware appears intact. No immediate complication identified. IMPRESSION: 1. No evidence for intraoperative complication. 2. Please see the operative/procedural note for further details. [facility], , 11/25/2024 9:17 PM
[2024-11-25] MEDS: PREGABALIN 75 MG CAP PO SCH (21:29)
[2024-11-25] MEDS: oxyCODONE-APAP 10-325MG 1 EACH TAB PO PRN (22:19)
[2024-11-25] MEDS: KETOROLAC 15 MG/ML 1 ML VIAL IVP SCH (23:59)
[2024-11-26] MEDS: ACETAMINOPHEN TAB 325 MG TAB PO SCH
--- NOTE | 2024-11-26 07:24 | P.OP ---
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 LOW BACK PAIN Procedure(s) Performed: STAGE I: 1. LATERAL INTERBODY ARTHRODESIS (ANTERIOR) 2. ANTERIOR LUMBAR INSTRUMENTATION 3. INSERTION OF BIOMECHANICAL DEVICE, CAGE x1 L2-3 4. USE OF DANNIELLE NAVIGATION FOR THE ASSISTANCE IN ACCURATE PLACEMENT OF CAGE USE OF IONM STAGE II: 1. POSTEROLATERAL INSTRUMENTED FUSION 2. POSTEROLATERAL INSTRUMENTATION L2-3 3. USE OF Integrated Plasmon[employer] NAVIGATION FOR THE PLACEMENT OF SCREWS Implants: * GLOBUS SUKH LATERAL CAGE 6 DEG 7-16, 22X55 MM * 45MM SCREWS, 5MM PLATE * DANNIELLE EVEREST RODS AND SCREWS * ARTHROCELL, ALLOCELL, DBM, MAGNATOS Anesthesia: GETA Surgeon: Tristan Coyne Supply Teacher #1: Thanh Mulligan (WAS PRESENT AND ASSISTED WITH ALL ASPECTS OF THE CASE FROM POSITION TO DRESSING PLACEMENT) Estimated Blood Loss (ml): 50 IV fluids (ml): 1,700 Urine output (ml): 300 Pathology: none sent Condition: stable Disposition: PACU Indications for Procedure: Mr. Perdomo is a 69-year-old male who presents for follow-up evaluation of chronic lumbar pain and review of recent MRI results. Patient reports severe (10/10) sharp, throbbing low back pain with left lower extremity radiation, accompanied by intermittent muscle spasms. Conservative management including physical therapy, home exercise program, and multiple medications (Oxycodone, Pregabalin, Tylenol, and Naproxen) has failed to provide adequate relief. Recent imaging demonstrates L2-3 HNP with moderate to severe foraminal stenosis and vacuum disc phenomenon. Physical examination reveals left lower extremity motor weakness (4/5), positive straight leg raise, and ambulatory dysfunction requiring cane assistance. Given the progressive neurological deficits and failed conservative management, surgical intervention has been recommended in the form of a staged L2-3 lateral interbody fusion followed by posterolateral stabilized fusion. Patient has been counseled on surgical risks and benefits, and will proceed with PCP clearance prior to surgical scheduling Description of Procedure: L2-3 lateral interbody fusion with posterolateral instrumented fusion (ARIE) The patient was seen and examined in the preoperative area. All preoperative protocols were followed. Informed consent was obtained, risks and benefits of the procedure were discussed at length. Risks including bleeding infection damage to the surrounding tissue and risk of reoperation were discussed with the patient. Risk of anesthesia up to and including was discussed with the patient. These are outlined in the risk review. They were willing to accept these risks and all of the risks of surgery. The patient was given a weight- based dose of antibiotics in the form of 2 g Ancef. The patient was seen and evaluated by the anesthesia team who deemed them fit for surgery. The site was marked, the patient was willing to proceed with the procedure. The patient was transferred to the operative suite by the Department of anesthesia. They were then drifted off to sleep by the department anesthesia and GETA was performed. The patient tolerated this well. De La O catheter was placed by nursing staff, atraumatically. Once confirmation of lines and ventilation the patient was transferred to a flat Ronnie table and placed in the right lateral decubitus position. Axillary roll was placed. Hip Bump was placed. All bony prominences including wrists, elbows, axilla, chest, hips, and thighs, and feet were padded very well. Special attention was paid to the genitalia and these were padded accordingly. SCDs were placed on bilateral lower extremities and were connected. Arms were well padded and placed on armboard pillows. The patient was taped to the table and secured. Once in position, again we confirmed good ventilation capabilities and that lines were running appropriately. The patient's left lateral lumbar and flank was then exposed. 1010s were placed outlining the incision site. Standard alcohol was used to clean the incision site and allowed to dry. C-arm was used to biomark the patient and confirm level for incision which was marked with a skin marker. Operative briefing was performed with all teams and everyone in agreement to proceed. The patient was then prepped and draped in a normal sterile fashion. Timeout was then performed and all parties were in agreement with the procedure to be performed. Skin agustina were made over the anterior portion of the illiac crest and pins were placed for the ARIE tracker. 3D C arm spin was then done and registered and confirmed to be accurate. Transverse skin incision was then made over the previously biomarker area and dissection taken down with EC to the external oblique fascia. This was then identified and two large jerald clamps then used for blunt dissection through the external, internal and transverse abdominis inline with the level to be exposed. Once the transversalis fascia was identified the retroperitoneal space was entered bluntly and blunt dissection was used to sweep abdominal contents anteriorly. Retroperitoneal fat was identified and the psoas as well as TVP was palpated. Once this was identified a blunt probe was placed with navigation. Once it was in good position of the body and at the disc space, a wire was passed. IONM was used to stimulate the probes before at 2 and 5 mA with no responses in all 4 quadrants. Dilator was then placed over the probe and stimulated and there was no response again. Retractor blades were then chosen and retractor placed and secured in position and to the table. The blades were carefully then opened slightly and the IONM probe sent down all 4 quadrants again without any responses at 2, 5 and 10 mA. The retractor was then opened further for visualization and the dilators and wire removed. Disc space was visible and a combination of bipolar and EC were used to clean margins and identify disc. Once it was identified, rongeur was used to remove outer osteophytes. A osteotome was then used to pass through the disc space under fluoroscopic guidance once this was passed a Recio was then passed in a similar fashion through to the opposite side to release the osteophytes on this side as well. Navigated osteotomes and cobbd were passed in a similar fashion until the disc had been completely removed. Good bleeding endplates were noted. Pituitary was used to remove any floating or excess fragments. The trial was then placed and sized. The disc space was irrigated. A [55 mm x 22 mm 8-16 mm] expandable lateral leg spine cage was then selected and placed under fluoroscopic guidance. The cages then expanded to its desired height, reducing a and restoring disc space height and lordosis and alignment. The cage was backfilled with MagnetOs. The service rig operator was then removed and the area inspected. No injury was evident, minimal bleeding was cauterized and AP and Lateral images confirmed good placement of cage. Screws were then placed through the cage into the bodies and locked into the plate. The retractor was then removed under direct vi sualization at 20 min in the psoas. The wound was copiously irrigated with NSS. The deep fascia was then closed with 0 Vicryl superficial closed with 2-0 Vicryl and the skin was closed with a 3-0 running strata fix Monocryl. Skin glue was then placed after it was cleaned it was then dressed sterilely with an operative foam dressing. The patient was transferred back to their hospital bed atraumatically and the beds were flipped for the second stage posteriorly. Pt was then positioned prone on a [employer] spine top table. All bony prominences including wrists, elbows, axilla, chest, hips, and thighs, and feet were padded very well. Special attention was paid to the genitalia and these were padded accordingly. SCDs were placed on bilateral lower extremities and were connected. Arms were well padded and placed on armboard pillows. The patient was taped to the table and secured. Once in position, again we confirmed good ventilation capabilities and that lines were running appropriately. The patient's left lateral lumbar and flank was then exposed. 1010s were placed outlining the incision site. Standard alcohol was used to clean the incision site and allowed to dry. C-arm was used to biomark the patient and confirm level for incision which was marked with a skin marker. Operative briefing was performed with all teams and everyone in agreement to proceed. The patient was then prepped and draped in a normal sterile fashion. Timeout was then performed and all parties were in agreement with the procedure to be performed. Skin nicks were then made over the PSIS on the Right side and pins placed for the [employer] Navigation tracker system. This was then secured. A 3D Ziehm spin was then obtained and registered. Once it was confirmed to be accurate, pedicles were targeted through bilateral skin incisions over L2 and L3. Navigated Jamshidi was used to plan screws followed by a navigated drill bit. Once drilled a wire was placed in the pedicle and they were all confirmed to be in good position on AP and Lateral imaging. Screws were then placed over the wires using lateral imaging. Once in position screws were tested and all tested above 20 mA. Rods were then selected and bent appropriately. Posterolateral gutters were decorticated with a high speed homero and Ventris bio placed in the PL gutters for fusion. Rods were then placed through tulip heads, subfascial and secured with set screws. Set screws were then finally tightened. Tabs were broken off. AP and Lateral imaging confirmed good placement of screws with reduction of height, lordosis and alignment. Wounds were copiously irrigated with NSS. Local anesthetic is placed remote to the incision for the block. The deep fascia was closed with 0 vicryl. Superficial closed with 2-0 Vicryl and skin closed with aleyda. Wound edges approximated very well. Wounds were then cleaned and dressed sterilly with optifoam dressing. The patient was then transferred to their hospital bed atraumatically. Patient was then awakened and extubated by the department of anesthesia having tolerated the procedure very well with no complications. They were transferred to the postoperative care unit in stable condition.
--- NOTE | 2024-11-26 07:48 | CT ---
EXAMINATION TYPE: CT lumbar spine wo con DATE OF EXAM: 11/26/2024 12:31 AM COMPARISON: 02/29/2024. CLINICAL INDICATION: Male, 69 years old with history of s/p lumbar fusion; PHH, lumbar fusion TECHNIQUE: Multiple axial images were obtained from the midportion of T11 through the sacroiliac zaina nts. Soft tissue and bone windows in coronal and sagittal planes were obtained and reviewed. Contrast used: mL of , (None, if empty). Oral contrast used: (None, if empty). CT DLP: 1458.8 mGycm, Automated exposure control for dose reduction was used. FINDINGS: Postsurgical changes to the lumbar spine with fixation hardware at L2-L3 with discectomy and L4-L5 wi th discectomy. Hardware limits evaluation at these levels. Hardware appears intact. No evidence of fr acture. Postsurgical changes in the soft tissues with foci of gas present. Drainage catheter with tubing in t he surgical bed. Posterior back skin aleyda are present. There are stimulator lead terminating super iorly out of the [id number].. IMPRESSION: Postsurgical changes without evidence of immediate post operative complication. [facility], , 11/26/2024 7:46 AM
[2024-11-26 08:18] LABS: Basophils # (A) 0.02 X 10*3/uL (0.00-0.10); Basophils % (A) 0.2 %; Eosinophils # (A) 0.07 X 10*3/uL (0.04-0.35); Eosinophils % (A) 0.8 %; HCT 35.3 % (39.6-50.0); HGB 11.7 g/dL (13.0-17.0); Lymphocytes # (A) 1.65 X 10*3/uL (0.90-5.00); Lymphocytes % (A) 19.1 %; MCH 32.1 pg (27.0-32.0); MCHC 33.1 g/dL (32.0-37.0); MCV 96.7 FL (80.0-97.0); Mean Platelet Volume 11.9 FL (9.5-12.2); Monocytes # (A) 0.67 X 10*3/uL (0.20-1.00); Monocytes % (A) 7.7 %; NRBC Per 100 WBC 0 X 10*3/uL (0.00-0.01); Neutrophils # (A) 6.21 X 10*3/uL (1.80-7.70); Neutrophils % (A) 71.9 %; Platelet Count 134 X 10*3/uL (140-440); RBC 3.65 X 10*6/uL (4.40-5.60); RDW 13.3 % (11.5-14.5); WBC 8.65 X 10*3/uL (4.50-10.00)
[2024-11-26 08:39] VITALS: BP 105/66; PULSE 80; RESP 19; TEMP 97.5
[2024-11-26 08:43] LABS: BUN/Creat Ratio 13.86 Ratio (12.00-20.00); Blood Urea Nitrogen 9.7 mg/dL (9.0-27.0); Calcium 8.4 mg/dL (8.7-10.3); Carbon Dioxide 24.5 mmol/L (21.6-31.8); Chloride 103 mmol/L (96-109); Glucose 90 mg/dL (70-110); Potassium 3.4 mmol/L (3.5-5.5); Sodium 137 mmol/L (135-145)
[2024-11-26] MEDS: polyethylene glycoL 3350 17 GM POWD.PACK PO SCH (08:50)
[2024-11-26] MEDS: SENNOSIDES-DOCUSATE SODIUM 1 EACH TAB PO SCH (08:50)
[2024-11-26] MEDS: CYCLOBENZAPRINE 10 MG TAB PO PRN (08:50)
--- NOTE | 2024-11-26 09:11 | P.PN ---
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 Patient is sitting up in chair at bedside. Patient has been ambulatory within room and is tolerating activity well. He does report that his pain is managed on current regimen. Informed patient that physical therapy will begin to work with him today. There is no brace necessary. Surgical incisions to the left lateral flank and lumbar spine, dressings are clean dry and intact. No shadowing noted. Patient states he is looking forward to discharge later today. Discharge instructions have been discussed. No acute concerns. Objective - Vital Signs Vital signs: Vital Signs Temp 97.2 F L 11/26/24 01:50 Pulse 89 11/26/24 01:50 Resp 17 11/26/24 01:50 BP 99/62 11/26/24 01:50 Pulse Ox 96 11/26/24 01:50 FiO2 Intake & Output 11/25/24 11/26/24 11/26/24 18:59 06:59 18:59 Intake Total 3052 2900 Output Total 300 1650 Balance 2752 1250 Weight 94.7 kg 94.7 kg Intake: IV 3052 900 Oral 2000 Output: Urine 300 1600 Estimated Blood Loss 50 Other: Voiding Method Indwelling Catheter - Exam Physical Examination General: The patient is awake and alert, in no acute distress. Skin: Skin is warm and dry with no obvious rashes or lesions. Surgical incision to the left flank and lumbar spine, dressings are clean dry and intact with no shadowing noted. Eye: Pupils are equal, round and reactive to light, extra-ocular movements are intact; there is normal conjunctiva bilaterally. Neck: The neck is supple, there is no tenderness and ROM intact. Respiratory: Respirations are non-labored. Gastrointestinal: Soft, non-distended, non-tender abdomen. Back: There is no tenderness to palpation in the midline, paralumbar, parathoracic or buttocks region. There is no obvious deformity. Musculoskeletal: ROM limited secondary to pain and stiffness from surgical procedure. Right: Shoulder abduction 5/5, elbow flexors 5/5, wrist dorsiflexors 5/5. finger abductor 5/5, aircraft electrical systems specialist 5/5, hip flexor 5/5, knee flexor 5/5, ankle dorsiflexor 5/5, ankle plantarflexion 5/5 and extensor hallucis 5/5 Left: Shoulder abduction 5/5, elbow flexors 5/5, wrist dorsiflexors 5/5. finger abductor 5/5, aircraft electrical systems specialist 5/5, hip flexor 4/5, knee flexor 4/5, ankle dorsiflexor 5/5, ankle plantarflexion 5/5 and extensor hallucis 5/5. Neurological: CN 2-12 intact. There are no obvious motor or sensory deficits. Movement and coordination equal and intact. Sensory exam to light touch intact C5-T1 and intact from L2-S1. Reflexes 2/4 in bilateral upper and lower extremities. Negative Hoffmans, babinski, and clonus signs. Psychiatric: Cooperative, appropriate mood & affect, normal judgment. - Labs CBC & Chem 7: 11/26/24 04:12 11/26/24 04:12 Labs: Abnormal Lab Results - Last 24 Hours (Table) 11/26/24 Range/Units 04:12 RBC 3.65 L (4.40-5.60) X 10*6/uL Hgb 11.7 L (13.0-17.0) g/dL Hct 35.3 L (39.6-50.0) % MCH 32.1 H (27.0-32.0) pg Plt Count 134 L (140-440) X 10*3/uL Assessment and Plan Assessment: Postop day 1: Stage I L2-L3 lateral interbody fusion, stage II L2-L3 posterior stabilized fusion Plan: -Appreciate bmw sales consultant and team management. -Activity: Ambulate QID, OOB all meals, up and about, limit lifting bending twisting to less than 5 lbs. Use walker or cane if needed for stability. -Daily PT/OT, increase ambulation strength and balance. -Pain control: Adequate at this time -Meds: reviewed -GI ppx: senna, Miralax -DVT PPX: Aspirin 81mg daily -Hygiene: Maintain incision clean and dry. May change dressing as needed, please document in notes if performed. Meticulous cleaning after BMs away from the incision site -Encourage IS 10x/hr -Dispo: Anticipate discharge home with homecare. *I reviewed and discussed this case with my attending Dr. Coyne, whom has reviewed this chart and films and is in agreement with assessment and plan of care as outlined above. I have personally seen and examined the patient, performed the documentation and the assessment and plan as written. Number of minutes spent on the visit: 20m
--- NOTE | 2024-11-26 09:22 | P.DS ---
Providers Date of admission: 11/25/24 12:05 Expected date of discharge: 11/26/24 Attending physician: Tristan Coyne DO Consults: 11/25/24 19:29 Consult Physician Routine Consulting Provider: Ugo Moreau Reason/Comments: Medical Management Do you want consulting provider notified?: Yes, Notify in am Primary care physician: Tomeka Odette [facility] Hospital Course: Hospital Course: The patient was evaluated preoperatively and found to have the diagnosis of lumbar spondylosis with stenosis, left lower extremity paresthesia. They underwent appropriate preoperative care and were willing to undergo the intended procedure. They underwent a successful stage I L2-L3 lateral interbody fusion, stage II L2-L3 posterior stabilized fusion, were recovered appropriately and sent to the floor. While on the floor they worked with physical therapy, occupational therapy and nursing to enhance their recovery experience. Their pain was well controlled through their stay and they were started on appropriate medications, DVT ppx modalities, activity and dietary needs. Daily labs were monitored closely, and transfusions were only used when necessary. Medicine as well as other consulting services have made their input and have helped with our team approach and multidisciplinary care. PT milestones have been met and passed and they have made the recommendation of home for this patient and treating providers agree with this care path. The patient will be discharged home with appropriate medications, instructions and follow-up information and in stable condition. Patient Condition at Discharge: Good Plan - Discharge Summary Discharge Rx Participant: Yes New Discharge Prescriptions: New Cyclobenzaprine [Flexeril] 10 mg PO TID PRN #40 tab PRN Reason: Muscle Spasm Pregabalin [Lyrica] 150 mg PO BID #60 cap oxyCODONE-APAP 10-325MG [Percocet 10-325 mg] 1 tab PO Q4HR PRN #40 tab PRN Reason: Pain Sennosides/Docusate Sodium [Senna Plus 8.6-50 mg Tablet] 2 each PO DAILY PRN #20 tab PRN Reason: Constipation No Action Lisinopril-Hctz 20-25 mg [Zestoretic 20-25] 1 tab PO DAILY amLODIPine [Norvasc] 5 mg PO DAILY traZODone HCL [Desyrel] 100 mg PO HS Atorvastatin Calcium [Lipitor] 80 mg PO DAILY Pregabalin [Lyrica] 150 mg PO BID Magnesium Oxide [Magnesium] 500 mg PO DAILY Cholecalciferol (Vitamin D3) [Vitamin D3 (50 Mcg = 2000 Iu)] 50 mcg PO DAILY Naproxen 500 mg PO DAILY #14 tab oxyCODONE-APAP 10-325MG [Percocet 10-325 mg] 1 tab PO Q4HR PRN #28 tab PRN Reason: Pain Cyclobenzaprine [Flexeril] 10 mg PO TID PRN PRN Reason: Spasms Discharge Medication List Lisinopril-Hctz 20-25 mg [Zestoretic 20-25] 1 tab PO DAILY 03/12/17 [History] amLODIPine [Norvasc] 5 mg PO DAILY 03/12/17 [History] traZODone HCL [Desyrel] 100 mg PO HS 06/13/23 [History] Atorvastatin Calcium [Lipitor] 80 mg PO DAILY 01/10/24 [History] Pregabalin [Lyrica] 150 mg PO BID 01/10/24 [History] Cholecalciferol (Vitamin D3) [Vitamin D3 (50 Mcg = 2000 Iu)] 50 mcg PO DAILY 09/12/24 [History] Magnesium Oxide [Magnesium] 500 mg PO DAILY 09/12/24 [History] Naproxen 500 mg PO DAILY #14 tab 09/16/24 [Rx] oxyCODONE-APAP 10-325MG [Percocet 10-325 mg] 1 tab PO Q4HR PRN #28 tab 09/16/24 [Rx] Cyclobenzaprine [Flexeril] 10 mg PO TID PRN 11/25/24 [History] Cyclobenzaprine [Flexeril] 10 mg PO TID PRN #40 tab 11/26/24 [Rx] Pregabalin [Lyrica] 150 mg PO BID #60 cap 11/26/24 [Rx] Sennosides/Docusate Sodium [Senna Plus 8.6-50 mg Tablet] 2 each PO DAILY PRN #20 tab 11/26/24 [Rx] oxyCODONE-APAP 10-325MG [Percocet 10-325 mg] 1 tab PO Q4HR PRN #40 tab 11/26/24 [Rx] Follow up Appointment(s)/Referral(s): Tomeka Pino DO [Primary Care Provider] - 1 Week Tristan Coyne DO [Doctor of Osteopathic Medicine] - 2 Weeks Activity/Diet/Wound Care/Special Instructions: Spine Discharge and Recovery Instructions Date of Surgery: 11/25/24 Diagnosis: Lumbar spondylosis; LLE paresthesia Procedure: Stage I L2-L3 lateral interbody fusion, stage II L2-L3 posterior stabilized fusion Medications: See medication list All medication refills should be obtained through your primary care doctor or your clinic spine surgeon. Please discuss prescription refills at your follow up appointment. Do not call the hospital for medication refills. Activity: Encourage ambulation with assist of walker, Up and about 6-8x daily PT/OT daily work on balance, strength and mobility Up in chair with all meals Shower daily Brace: Use brace when up and about, do not wear in bed or shower Dressing: Leave your dressing in place for a total of 3 days post operatively. Then you may remove your dressing and leave open to air. Keep the area clean and if not able to keep area clean, then cover with sterile gauze and tape. Showering: You may shower 3 days after your procedure allowing soap and water to run over incision. Do not scrub. Do not soak. Blot dry. Follow up: Please confirm a follow up appointment with your surgeon 2 weeks post operatively. Please make an appointment to follow up with your PCP in 1-2 weeks after surgery for evaluation '3 phase, 3-week plan' POST OP WEEKS 1-3 1. Lifting/carrying/pushing/pulling limited to less than 5 pounds. 2. Do not sit for longer than 15 minutes at one time. Get up and walk around. Prolonged sitting is NOT advised. If you lay down, see if you can tolerate laying down on you front (belly side) 3. Walk for periods of 15 minutes = 1 mile but no longer; do it multiple times times each day. 4. Ice your low back after activity. POST OP WEEKS 3-6 1. Lifting limited to less than 20 pounds. 2. Do not sit for longer than 30 minutes at a time. Frequently change positions. Use a sit-to stand workstation or take frequent breaks from sitting if you have returned to work. 3. Walk for 30 minutes each day. If possible, do these three or more times a day POST OP WEEKS 6+ At your 6-week appointment we will give you a physical therapy referral to focus on a core stabilization and strengthening program. You should also work on leg & buttock strengthening, hamstring & quadriceps stretching, and continue a low impact aerobic activity program such as swimming, walking, or riding a stationary bicycle. During the initial 6 weeks after your surgery, you are at the highest risk of re-injuring your spine. You should generally avoid BLT's (bending, lifting and twisting combination motions) and follow the above guidelines to reduce the chance of reinjury. You can anticipate post op appointments in our office at approximately 3 weeks and 6 weeks after your surgery. INCISION CARE: If your incision is not draining you do NOT need to cover it with a dressing. Keep your incision clean, dry and intact. In most cases, we apply skin glue, aleyda or sutures to the incision at the time of surgery. This will be like a crust or have the appearance of a scab and will fall off in time on its own. The stitches or aleyda need to be removed at 3 weeks post op appointment. You may begin to shower 3 days after surgery (this allows the glue to santos well). However, please avoid scrubbing the incision site or peeling off any of the skin glue. This will ensure optimal healing of your incision. Also, during this time avoid soaking the incision area in water - this includes swimming pools, hot tubs or baths. No ointments, lotions or oils on the incision until your surgeon allows. Leave aleyda, sutures or glue in place. Neurological dysfunction that comes on suddenly can also be a sign of a stroke. Below some common symptoms of a stroke are listed: B - balance difficulty such as sudden onset walking or leaning to one side - NEW E - eye problem such as sudden double vision or trouble seeing on one side - NEW F - Facial weakness or numbness on one side - NEW A - Arm or leg weakness or numbness on one side - NEW S - Slurred speech or difficulty with word finding - NEW T - Time is BRAIN! Call 911 as soon as you recognize these symptoms Diet: Consume a regular diet rich in vegetables and lean protein such as chicken or fish. You should consume in a ratio of approximately 20% fats|40% carbohydrates|40%protein. Vegetables, sweet potatoes, brown rice or quinoa are examples of good carbohydrates. Chips, white bread, cookies and sweets/sugar are examples of bad carbohydrates. Limit your bad carbs, go wild with good carbs. "Life's Simple 7" Guidelines as per [place] [employer] These will help you reclaim your life after surgery and ingredient scaler helper in your recovery, keeping in mind your restrictions. (1) Get Active. Physical activity can help people lose weight, control high blood pressure and cholesterol, feel emotionally better, and sleep better. (2) Control Cholesterol. Avoid a diet high in saturated fat, trans fat, & cholesterol. Limit whole milk & cream, ice cream, butter, egg yolks, processed meats (like sausage and hot dogs), and fatty meats. Choose healthy foods that are low in saturated fat, trans fat and cholesterol which include: Fruits and vegetables, fiber rich grain products (like whole grain pasta and brown rice), lean meat such as chicken, fish, nuts, seeds, and legumes. (3) Eat Better. Eat small portions. Shop at the grocery with a list and do not stray from it. Tips for a healthy diet include: Limit sodium intake to less than 1500mg daily, avoid prepackaged, processed, and fast foods, choose a diet rich in fruits, vegetables, and whole grain, high fiber foods, and limit saturated & cholesterol in your diet. (4) Manage Blood Pressure. If you have high blood pressure, you should have a cuff at home so that you can check your blood pressure regularly. Be sure you have a good cuff. An arm one is generally better than a wrist one. Bring the cuff to a doctor's appointment to validate that the measurements that your cuff are taking are accurate. Take your blood pressure twice daily when you are sitting down and relaxing. Record the numbers in a log and bring this log with you to your doctors' appointments. (5) Lose Weight if your BMI is above 25. A healthy BMI is between 19-25. To calculate Your BMI, you may use a Standard BMI Calculator on the NIH BMI website: <www.nhlbi.nih.gov/guidelines/obesity/BMI/bmicalc.htm>. Weigh oneself daily. If you are overweight, set a goal to lose weight. A pound a week loss if needed is a good target. (6) Reduce Blood Sugar. Limit foods and liquids with "added sugars." (Added sugars include sucrose, fructose, glucose, maltose, dextrose, high fructose corn syrup, corn syrup, concentrated fruit juice and honey). (7) Stop Smoking. If you smoke, quitting smoking is one of the best things that you can do for your health. Smoking increases your risk of heart attack, stroke, and peripheral vascular disease, which is a build-up of plaque in your arteries. Please discard all the cigarettes and lighters in your house. Have a plan for what you will do when you have the urge to smoke. Direct and second- hand smoke shortens your life as well as the lives of your family, friends and others around you. For your health and the health of those around you, please consider quitting! Proper Bending Body Mechanics: Maintain a wide stance with one foot slightly in front of the other. Keep your back straight. Bend utilizing the strength in your hips and knees. Do not bend at the waist. Maintain the lifted object at your waist-level close to your body. Avoid lifting weight that causes immediately pain or pain anywhere in the body afterwards. Smoking/Nicotine If there was ever one thing that you could do to increase your overall health, decrease your risk of cardiovascular problems by about 39% the second you make the choice, it is to STOP SMOKING. Your body's most instant gratification is the second you stop smoking. We have all heard the studies, read the articles but it is true, smoking is extremely bad for your overall health, and moreover it is detrimental to your bone health. Nicotine, IN ANY FORM, kills bone cells, prevents your body from healing fractures, and significantly prolongs healing after surgery. In spine surgery specifically, it increases your risk of not healing your bones to create a fusion and increases your risk of having a revision surgery due to this up to 60%. I know it is hard. I know it feels impossible. But there are ways. Take control of your life. We are here to help you through it. And when you are ready, ask us and we can direct you to help if you desire. Use the START Plan to Quit Smoking (please visit the Helpguide.org website listed below for more information): S = Set a quit date. Choose a date within the next 2 weeks, so you have enough time to prepare without losing your motivation to quit. If you mainly smoke at work, quit on the weekend, so you have a few days to adjust to the change. T = Tell family, friends, and co-workers that you plan to quit. Let your friends and family in on your plan to quit smoking and tell them you need their support and encouragement to stop. Look for a quit filippo who wants to stop smoking as well. You can help each other get through the rough times. A = Anticipate and plan for the challenges you'll face while quitting. Most people who begin smoking again do so within the first 3 months. You can help yourself make it through by preparing ahead for common challenges, such as nicotine withdrawal and cigarette cravings. R = Remove cigarettes and other tobacco products from your home, car, and work. Throw away all your cigarettes (no emergency pack!), lighters, ashtrays, and matches. Wash your clothes and freshen up anything that smells like smoke. Shampoo your car, clean your drapes and carpet, and steam your furniture. T = Talk to your doctor about getting help to quit. Your doctor can prescribe medication to help with withdrawal and suggest other alternatives. If you can't see a doctor, you can get many products over the counter at your local pharmacy or grocery store, including the nicotine patch, nicotine lozenges, and nicotine gum. Resources for Quitting Smoking: <https://www.[place].gov/documents/[facility]/Q uit_Tobacco_Resources_for_patients_313480_7.pdf> Supplementation: Take recommended dosages of Vitamin D and Calcium to help fortify your bones and help them to heal. See your health maintenance packet for dosages and recommended levels. DVT/VTE prophylaxis: You will be given compression stockings from the hospital. Wear these daily for the first two weeks after surgery. You may take them off at night. You may be prescribed a medication to help thin your blood. Take this as directed. If you are not prescribed this medication, early and frequent ambulation has been shown to be the best prophylaxis to deep vein thrombosis and sequelae related to this event. Discharge Disposition: HOME WITH HOME HEALTH SERVICES
--- NOTE | 2024-11-26 12:56 | P.CONS ---
History of Present Illness - Reason for Consult Consult date: 11/26/24 Medical management - History of Present Illness History of present illness; patient is a 69-year-old gentleman past medical history significant for chronic back pain presented the hospital for elective staged L2-3 lateral interbody fusion followed by posterolateral stabilized fusion. Patient is following up outpatient with orthopedics for back pain, conservative measures in the form of therapy, pain medications, exercise programs have failed. Orthopedic recommended surgical intervention for which patient is in the hospital on 11/25. Postoperatively internal medicine team were consulted for medical management REVIEW OF SYSTEMS: CONSTITUTIONAL: No fever, no malaise, no fatigue. HEENT: No recent visual problems or hearing problems. Denied any sore throat. CARDIOVASCULAR: No chest pain, orthopnea, PND, no palpitations, no syncope. PULMONARY: No shortness of breath, no cough, no hemoptysis. GASTROINTESTINAL: No diarrhea, no nausea, no vomiting, no abdominal pain. NEUROLOGICAL: No headaches, no weakness, no numbness. HEMATOLOGICAL: Denies any bleeding or petechiae. GENITOURINARY: Denies any burning micturition, frequency, or urgency. MUSCULOSKELETAL/RHEUMATOLOGICAL: Back pain ENDOCRINE: Denies any polyuria or polydipsia. The rest of the 14-point review of systems is negative. PHYSICAL EXAMINATION: GENERAL: The patient is alert and oriented x3, not in any acute distress. Well developed, well nourished. HEENT: Pupils are round and equally reacting to light. EOMI. No scleral icterus. No conjunctival pallor. Normocephalic, atraumatic. No pharyngeal erythema. No th yromegaly. CARDIOVASCULAR: S1 and S2 present. No murmurs, rubs, or gallops. PULMONARY: Chest is clear to auscultation, no wheezing or crackles. ABDOMEN: Soft, nontender, nondistended, normoactive bowel sounds. No palpable organomegaly. MUSCULOSKELETAL: No joint swelling or deformity. EXTREMITIES: No cyanosis, clubbing, or pedal edema. NEUROLOGICAL: Gross neurological examination did not reveal any focal deficits. SKIN: Lumbar area surgical incision seen Assessment and plan L2-3 HNP with spondylosis and stenosis Left lower extremity radiculopathy Left lower extremity paresthesia History of hypertension History of hyperlipidemia Monitor vital signs Monitor CBC Status post Stage I L2-L3 lateral interbody fusion, stage II L2-L3 posterior stabilized fusion Continue pain management per orthopedics Continue DVT prophylaxis per orthopedics Aggressive bowel regimen to prevent opioid-induced constipation Resume home meds PT and OT consulted Labs and medication were reviewed.. Continue same treatment. Continue with symptomatic treatment. Resume home medication. Monitor labs and vitals. DVT and GI prophylaxis. Further recommendations as per clinical course of the patient Dictation was produced using [employer] dictation software. please excuse any gramma tical, word or spelling errors. Past Medical History Past Medical History: Hearing Disorder / Deafness, Hyperlipidemia, Hypertension, Osteoarthritis (OA), Sleep Apnea/CPAP/BIPAP Additional Past Medical History / Comment(s): uses CPAP MACHINE, TINNITUS History of Any Multi-Drug Resistant Organisms: None Reported Past Surgical History: Back Surgery, Orthopedic Surgery, Tonsillectomy Additional Past Surgical History / Comment(s): SHELDON SHOULDER SURGERY, STIMULATOR IMPLANTED IN BACK- now removed, L5 S1 locked SI joints, morphine pump- now removed, hardware in back from back surgeries, EGD, colonoscopy Past Anesthesia/Blood Transfusion Reactions: No Reported Reaction Additional Past Anesthesia/Blood Transfusion Reaction / Comm: no blood transfusion Past Psychological History: No Psychological Hx Reported Smoking Status: Former smoker Past Alcohol Use History: Occasional Additional Past Alcohol Use History / Comment(s): STARTED SMOKING AT AGE 20 1/2PPD, quit 2022; drinks alcohol couple times a month- advised no alcohol 24 hrs prior to surg. Past Drug Use History: None Reported - Past Family History Mother Family Medical History: No Reported History Father Family Medical History: Diabetes Mellitus Medications and Allergies Home Medications Medication Instructions Recorded Confirmed Type Lisinopril-Hctz 20-25 mg 1 tab PO DAILY 03/12/17 11/20/24 History [Zestoretic 20-25] amLODIPine [Norvasc] 5 mg PO DAILY 03/12/17 11/20/24 History traZODone HCL [Desyrel] 100 mg PO HS 06/13/23 11/20/24 History Atorvastatin Calcium [Lipitor] 80 mg PO DAILY 01/10/24 11/20/24 History Pregabalin [Lyrica] 150 mg PO BID 01/10/24 11/20/24 History Cholecalciferol (Vitamin D3) 50 mcg PO DAILY 09/12/24 11/20/24 History [Vitamin D3 (50 Mcg = 2000 Iu)] Magnesium Oxide [Magnesium] 500 mg PO DAILY 09/12/24 11/20/24 History Naproxen 500 mg PO DAILY #14 tab 09/16/24 11/20/24 Rx oxyCODONE-APAP 10-325MG [Percocet 1 tab PO Q4HR PRN #28 tab 09/16/24 11/20/24 Rx 10-325 mg] Cyclobenzaprine [Flexeril] 10 mg PO TID PRN 11/25/24 11/25/24 History Cyclobenzaprine [Flexeril] 10 mg PO TID PRN #40 tab 11/26/24 Rx Pregabalin [Lyrica] 150 mg PO BID #60 cap 11/26/24 Rx Sennosides/Docusate Sodium [Senna 2 each PO DAILY PRN #20 tab 11/26/24 Rx Plus 8.6-50 mg Tablet] oxyCODONE-APAP 10-325MG [Percocet 1 tab PO Q4HR PRN #40 tab 11/26/24 Rx 10-325 mg] Allergies Allergy/AdvReac Type Severity Reaction Status Date / Time No Known Allergies Allergy Verified 11/25/24 12:47 Physical Exam Vitals: Vital Signs Temp Pulse Resp BP Pulse Ox 11/26/24 07:36 97.5 F L 80 19 105/66 98 11/26/24 01:50 97.2 F L 89 17 99/62 96 11/25/24 23:03 80 98/63 100 11/25/24 22:48 83 102/64 99 11/25/24 22:33 86 110/67 98 11/25/24 22:18 89 128/79 98 11/25/24 22:03 88 123/71 99 11/25/24 21:48 82 123/73 98 11/25/24 21:33 81 133/82 99 11/25/24 21:18 80 118/59 99 11/25/24 21:05 80 118/74 97 11/25/24 21:00 79 118/74 98 11/25/24 20:46 79 14 106/55 99 11/25/24 20:31 80 14 108/57 100 11/25/24 20:16 79 12 110/57 99 11/25/24 20:01 80 16 107/61 100 11/25/24 19:46 79 18 72/42 100 11/25/24 19:31 97.0 F L 83 16 92/54 99 11/25/24 14:56 72 16 123/69 95 11/25/24 13:45 75 16 102/60 96 11/25/24 12:55 97.6 F 93 16 132/96 97 Intake and Output 11/25/24 11/26/24 11/26/24 22:59 06:59 14:59 Intake Total 4102 1650 Output Total 850 1100 Balance 3252 550 Intake: IV 3752 Oral 350 1650 Output: Urine 800 1100 Estimated Blood Loss 50 Other: Voiding Method Indwelling Catheter Weight 94.7 kg Results CBC & Chem 7: 11/26/24 04:12 11/26/24 04:12 Labs: Abnormal Lab Results - Last 24 Hours (Table) 11/26/24 11/26/24 Range/Units 04:12 04:12 RBC 3.65 L (4.40-5.60) X 10*6/uL Hgb 11.7 L (13.0-17.0) g/dL Hct 35.3 L (39.6-50.0) % MCH 32.1 H (27.0-32.0) pg Plt Count 134 L (140-440) X 10*3/uL Potassium 3.4 L (3.5-5.5) mmol/L Calcium 8.4 L (8.7-10.3) mg/dL
[2024-11-26] MEDS ORDERED: ASPIRIN 81 MG PO SCH (21:00)
== END 2024-11-26 12:12 | disposition home or self-care (01) | DRG 402 ==
LOC: 2ORMAIN 12:05 → 4SSUR 19:48
PROVIDERS: ADMIT Orthopaedic Surgery; ATTEND Orthopaedic Surgery
PROC: 0SG00K1 Fusion of Lumbar Vertebral Joint with Nonautologous Tissue Substitute, Posterior Approach, Posterior Column, Open Approach (ICD-10-PCS; principal; 2024-11-25 14:00)
PROC: 0ST20ZZ Resection of Lumbar Vertebral Disc, Open Approach (ICD-10-PCS; principal; 2024-11-25 14:00)
PROC: 0SG00A0 Fusion of Lumbar Vertebral Joint with Interbody Fusion Device, Anterior Approach, Anterior Column, Open Approach (ICD-10-PCS; principal; 2024-11-25 14:00)
PROC: 4A11X4G Monitoring of Peripheral Nervous Electrical Activity, Intraoperative, External Approach (ICD-10-PCS; principal; 2024-11-25 14:00)
DX: M51.16 Intervertebral disc disorders with radiculopathy, lumbar region (principal); E78.5 Hyperlipidemia, unspecified; I10 Essential (primary) hypertension; M48.061 Spinal stenosis, lumbar region without neurogenic claudication; M43.16 Spondylolisthesis, lumbar region; M47.26 Other spondylosis with radiculopathy, lumbar region; H93.19 Tinnitus, unspecified ear; G47.30 Sleep apnea, unspecified; H91.90 Unspecified hearing loss, unspecified ear; Z79.1 Long term (current) use of non-steroidal anti-inflammatories (NSAID); Z79.899 Other long term (current) drug therapy; Z87.891 Personal history of nicotine dependence
CPT/HCPCS: 72100; 72131; 80048; 85025

== ENCOUNTER → 2025-01-15 | Outpatient (CLI) | payer MEDICARE ==
--- NOTE | 2025-01-16 12:04 | MR ---
EXAMINATION TYPE: MR hip LT wo con, MR femur/thigh LT wo con DATE OF EXAM: 01/15/2025 3:17 PM COMPARISON: CT abdomen and pelvis January 10, 2024. CLINICAL INDICATION: Male, 69 years old with history of R10.812,M25.512,M79.652, Lt groin pain into l eft upper leg IV Contrast: cc (None if empty) Standard multiplanar, multisequence MRI departmental protocol Multiplanar, multisequence images of the left hip and femur were acquired without contrast. FINDINGS: Symmetric moderate axial joint space loss in both hips. Femoral heads are maintained bilate rally. Symmetric small bilateral hip joint effusion is present physiologic. No serpiginous signal is diminished T1 signal to suggest avascular necrosis in the right hip. There is serpiginous diminished T1 signal and some height loss superior aspect of the right femoral head with surrounding T2 hyperint ensity. No suspicious T2 hyperintensity in the left hip. Mild increased T2 signal level of the greate r trochanters bilaterally slightly more prominent in the left hip. Finding consistent with bilateral insertional tendinosis. Muscle bulk is maintained bilaterally. No groin hernia or adenopathy is seen. There is susceptibility artifact from surgical change at the lumbosacral junction noted. Images of the bilateral femurs show no displaced fracture or suspicious focal osseous lesion. Muscle bulk is symmetric and maintained bilaterally. No well-formed fluid collection is seen bilaterally. No obvious concerning masses are noted. IMPRESSION: 1. Moderate degenerative changes in both hips are seen as detailed above. There is mild to moderate l eft greater than right insertional tendinosis at greater trochanter level bilaterally noted. 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 2. No suspicious findings in the left femur or thigh identified. [facility], , 01/16/2025 12:01 PM
== END | disposition home or self-care (01) ==
LOC: RADMRIMAIN 13:55
PROVIDERS: ATTEND Orthopaedic Surgery
DX: M16.0 Bilateral primary osteoarthritis of hip (principal); R10.812 Left upper quadrant abdominal tenderness